=== PATIENT | female | born 1940 | race Caucasian/White ===

== ENCOUNTER → 2016-08-03 | Outpatient (CLI) | payer OTHER ==
[~2016-08-03] MED LIST: ASPI81CH43; PREDPOW63; TRAM50TA2
[2016-08-03 12:54] LABS: Basophils # (auto) 0 uL; Basophils % (auto) 0.2 % (0.0-2.0); Eosinophils # (auto) 0 uL; Eosinophils % (auto) 0.2 % (0.0-7.0); Hemoglobin 12.3 g/dL (12.2-16.2); Lymphocytes # (auto) 1.6 uL; Lymphocytes % (auto) 18.9 % (10.0-50.0); Mean Corpuscular Hemoglobin 29.7 pg (28.0-32.0); Mean Corpuscular Hgb Conc. 34.1 g/dL (32.0-36.0); Mean Corpuscular Volume 87.3 fL (80.0-100.0); Mean Platelet Volume 7.8 fL (7.4-10.4); Monocytes # (auto) 0.4 uL; Monocytes % (auto) 4.2 % (0.0-12.0); Neutrophils # (auto) 6.4 uL; Neutrophils % (auto) 76.5 % (37.0-80.0); Platelet Count (auto) 375 10^3/uL (140-450); Red Cell Distribution Width 13.5 % (11.6-16.0); White Blood Cell 8.3 10^3/uL (4.4-10.8)
[2016-08-03 13:08] LABS: Albumin 3.7 g/dL (3.4-5.0); Bilirubin, Total 0.4 mg/dL (0.2-1.0); Calcium 8.6 mg/dL (8.5-10.1); Potassium 4.3 mmol/L (3.5-5.1); Total Protein 7.1 g/dL (6.4-8.2)
== END | disposition home or self-care (01) ==
LOC: LAB 10:38
PROVIDERS: ATTEND Internal Medicine
DX: I10 Essential (primary) hypertension (principal); R53.82 Chronic fatigue, unspecified; M81.0 Age-related osteoporosis without current pathological fracture; M35.3 Polymyalgia rheumatica; D64.9 Anemia, unspecified; M25.50 Pain in unspecified joint; M06.9 Rheumatoid arthritis, unspecified; Z79.899 Other long term (current) drug therapy
CPT/HCPCS: 36415; 80053; 80061; 82306; 83036; 84439; 84443; 85025; 85652; 86141

== ENCOUNTER → 2017-02-07 | Outpatient (CLI) | payer OTHER ==
[2017-02-07 12:52] LABS: Basophils # (auto) 0 uL; Basophils % (auto) 0.5 % (0.0-2.0); Eosinophils # (auto) 0 uL; Eosinophils % (auto) 0.6 % (0.0-7.0); Hematocrit 36.6 % (36.0-46.0); Hemoglobin 12.3 g/dL (12.2-16.2); Lymphocytes # (auto) 1.8 uL; Lymphocytes % (auto) 24.9 % (10.0-50.0); Mean Corpuscular Hemoglobin 30.2 pg (28.0-32.0); Mean Corpuscular Hgb Conc. 33.6 g/dL (32.0-36.0); Mean Corpuscular Volume 89.9 fL (80.0-100.0); Mean Platelet Volume 7.4 fL (6.9-10.8); Monocytes # (auto) 0.4 uL; Monocytes % (auto) 5.8 % (0.0-12.0); Neutrophils % (auto) 68.2 % (37.0-80.0); Nucleated Red Blood Cells % 0.1 %; Platelet Count (auto) 322 10^3/uL (140-450); Red Cell Distribution Width 13.9 % (11.8-14.3); White Blood Cell 7.3 10^3/uL (4.4-10.8)
[2017-02-07 13:43] LABS: Albumin 3.8 g/dL (3.4-5.0); BUN/Creatinine Ratio 27.9; Bilirubin, Total 0.5 mg/dL (0.2-1.0); Calcium 8.7 mg/dL (8.5-10.1); Potassium 4.3 mmol/L (3.5-5.1); Total Protein 7.1 g/dL (6.4-8.2)
== END | disposition home or self-care (01) ==
LOC: LAB 12:00
DX: I10 Essential (primary) hypertension (principal); M06.9 Rheumatoid arthritis, unspecified; D64.9 Anemia, unspecified; Z79.899 Other long term (current) drug therapy
CPT/HCPCS: 36415; 80053; 85025; 85652; 86141

== ENCOUNTER → 2017-10-24 | Outpatient (CLI) | payer OTHER ==
[2017-10-24 09:52] LABS: Basophils # (auto) 0 uL; Basophils % (auto) 0.5 % (0.0-2.0); Eosinophils # (auto) 0.2 uL; Eosinophils % (auto) 3.1 % (0.0-7.0); Hematocrit 37.2 % (36.0-46.0); Hemoglobin 12.4 g/dL (12.2-16.2); Lymphocytes # (auto) 2.1 uL; Lymphocytes % (auto) 38.1 % (10.0-50.0); Mean Corpuscular Hemoglobin 29.5 pg (28.0-32.0); Mean Corpuscular Hgb Conc. 33.4 g/dL (32.0-36.0); Mean Corpuscular Volume 88.5 fL (80.0-100.0); Monocytes # (auto) 0.6 uL; Monocytes % (auto) 10.3 % (0.0-12.0); Neutrophils # (auto) 2.7 uL; Nucleated Red Blood Cells % 0.1 %; Platelet Count (auto) 305 10^3/uL (140-450); Red Blood Cells 4.21 10^6/uL (4.0-5.20); Red Cell Distribution Width 13.6 % (11.8-14.3); White Blood Cell 5.6 10^3/uL (4.4-10.8)
[2017-10-24 11:13] LABS: Cholesterol 205 mg/dL (< 200); Creatine Kinase IFCC 50 U/L (26-192); HDL Cholesterol 62 mg/dL (40-59); LDL Cholesterol 125 mg/dL (< 100); Triglycerides 88 mg/dL (< 150)
[2017-10-24 14:13] LABS: Hepatitis A Ab IgM Negative; Hepatitis B Core IgM Negative; Hepatitis B Surface Antigen Negative (Negative); Hepatitis C Antibody Negative (Negative)
== END | disposition home or self-care (01) ==
LOC: LAB 07:58
PROVIDERS: ATTEND Internal Medicine
DX: I12.9 Hypertensive chronic kidney disease with stage 1 through stage 4 chronic kidney disease, or unspecified chronic kidney disease (principal); D63.1 Anemia in chronic kidney disease; N18.2 Chronic kidney disease, stage 2 (mild); Z88.1 Allergy status to other antibiotic agents
CPT/HCPCS: 36415; 80061; 80074; 82550; 85025; 85652

== ENCOUNTER → 2018-08-22 | Outpatient (CLI) | payer OTHER ==
[~2018-08-22] MED LIST changes: +ALEN70SO OR; -ASPI81CH43; -PREDPOW63; -TRAM50TA2
[2018-08-22 16:24] LABS: Basophils # (auto) 0 uL; Basophils % (auto) 0.4 % (0.0-2.0); Eosinophils # (auto) 0 uL; Eosinophils % (auto) 0.3 % (0.0-7.0); Hematocrit 36.7 % (36.0-46.0); Hemoglobin 11.7 g/dL (12.2-16.2); Lymphocytes # (auto) 2.3 uL; Lymphocytes % (auto) 25.5 % (10.0-50.0); Mean Corpuscular Hemoglobin 27.7 pg (28.0-32.0); Mean Corpuscular Volume 86.5 fL (80.0-100.0); Monocytes # (auto) 0.6 uL; Monocytes % (auto) 6.7 % (0.0-12.0); Neutrophils # (auto) 5.9 uL; Neutrophils % (auto) 67.1 % (37.0-80.0); Platelet Count (auto) 415 10^3/uL (140-450); Red Blood Cells 4.24 10^6/uL (4.0-5.20); Red Cell Distribution Width 14.4 % (11.8-14.3); White Blood Cell 8.8 10^3/uL (4.4-10.8)
== END | disposition home or self-care (01) ==
LOC: LAB 15:50
PROVIDERS: ATTEND Internal Medicine
DX: D32.9 Benign neoplasm of meninges, unspecified (principal); D64.9 Anemia, unspecified
CPT/HCPCS: 36415; 82565; 84520; 85025

== ENCOUNTER → 2018-11-16 | Outpatient (CLI) | payer OTHER ==
[2018-11-16 14:27] LABS: Cholesterol 184 mg/dL (< 200); HDL Cholesterol 61 mg/dL (40-59); LDL Cholesterol 104 mg/dL (< 100); Triglycerides 120 mg/dL (< 150)
== END | disposition home or self-care (01) ==
LOC: LAB 13:11
PROVIDERS: ATTEND Internal Medicine
DX: D64.9 Anemia, unspecified (principal); M81.0 Age-related osteoporosis without current pathological fracture; R53.82 Chronic fatigue, unspecified
CPT/HCPCS: 36415; 80061; 82306; 84443

== ENCOUNTER → 2018-12-04 | Outpatient (CLI) | payer OTHER ==
[2018-12-04 13:52] LABS: Basophils # (auto) 0 uL; Basophils % (auto) 0.4 % (0.0-2.0); Eosinophils # (auto) 0.1 uL; Eosinophils % (auto) 1.2 % (0.0-7.0); Hematocrit 36.4 % (36.0-46.0); Hemoglobin 12.1 g/dL (12.2-16.2); Lymphocytes # (auto) 2.2 uL; Lymphocytes % (auto) 27.6 % (10.0-50.0); Mean Corpuscular Hemoglobin 28.2 pg (28.0-32.0); Mean Corpuscular Hgb Conc. 33.2 g/dL (32.0-36.0); Mean Corpuscular Volume 84.8 fL (80.0-100.0); Monocytes # (auto) 0.5 uL; Monocytes % (auto) 6.7 % (0.0-12.0); Neutrophils # (auto) 5.1 uL; Neutrophils % (auto) 64.1 % (37.0-80.0); Platelet Count (auto) 325 10^3/uL (140-450); Red Blood Cells 4.29 10^6/uL (4.0-5.20); Red Cell Distribution Width 14.4 % (11.8-14.3)
[2018-12-04 14:00] LABS: Urine Bacteria FEW /hpf (None Seen); Urine Blood Negative /uL (Negative); Urine Mucus FEW (None Seen); Urine Specific Gravity 1.022 (1.001-1.035); Urine WBC 1 /hpf (0 - 5)
== END | disposition home or self-care (01) ==
LOC: LAB 12:27
PROVIDERS: ATTEND Internal Medicine
DX: Z12.11 Encounter for screening for malignant neoplasm of colon (principal); I12.9 Hypertensive chronic kidney disease with stage 1 through stage 4 chronic kidney disease, or unspecified chronic kidney disease; N18.2 Chronic kidney disease, stage 2 (mild)
CPT/HCPCS: 36415; 81001; 82607; 85025

== ENCOUNTER 2019-05-06 12:39 | Emergency (ER) | payer OTHER ==
[~2019-05-06] VITALS: Ht 177.8 cm; Wt 54.4 kg
[2019-05-06 12:50] VITALS: BP 163/62
== END 2019-05-06 16:39 | disposition home or self-care (01) ==
LOC: ER 12:46
DX: S53.402A Unspecified sprain of left elbow, initial encounter (principal); R10.2 Pelvic and perineal pain; I10 Essential (primary) hypertension; Z90.710 Acquired absence of both cervix and uterus; Z91.013 Allergy to seafood; W19.XXXA Unspecified fall, initial encounter; Y93.89 Activity, other specified; Y99.8 Other external cause status; Y92.89 Other specified places as the place of occurrence of the external cause; Z88.1 Allergy status to other antibiotic agents
CPT/HCPCS: 70450; 70486; 72192; 73070; 74176

== ENCOUNTER → 2019-05-18 | Outpatient (CLI) | payer OTHER ==
[2019-05-18 11:41] LABS: Basophils # (auto) 0 10 ^3/uL (0-0.2); Basophils % (auto) 0.4 % (0.0-2.0); Eosinophils # (auto) 0 10 ^3/uL (0-0.8); Eosinophils % (auto) 0.6 % (0.0-7.0); Hematocrit 36.5 % (36.0-46.0); Hemoglobin 12.1 g/dL (12.2-16.2); Lymphocytes % (auto) 24.4 % (10.0-50.0); Mean Corpuscular Hemoglobin 28.1 pg (28.0-32.0); Mean Corpuscular Hgb Conc. 33.3 g/dL (32.0-36.0); Mean Corpuscular Volume 84.4 fL (80.0-100.0); Monocytes # (auto) 0.6 10 ^3/uL (0-1.3); Monocytes % (auto) 6.8 % (0.0-12.0); Neutrophils # (auto) 5.6 10 ^3/uL (1.6-8.6); Neutrophils % (auto) 67.8 % (37.0-80.0); Platelet Count (auto) 333 10^3/uL (140-450); Red Blood Cells 4.33 10^6/uL (4.0-5.20); Red Cell Distribution Width 15.2 % (11.8-14.3); White Blood Cell 8.3 10^3/uL (4.4-10.8)
[2019-05-18 12:00] LABS: Albumin 3.6 g/dL (3.4-5.0); Calcium 8.8 mg/dL (8.5-10.1); Potassium 4.3 mmol/L (3.5-5.1)
[2019-05-18 12:03] LABS: Bilirubin, Total 0.3 mg/dL (0.2-1.0); Total Protein 7.1 g/dL (6.4-8.2)
== END | disposition home or self-care (01) ==
LOC: LAB 11:22
PROVIDERS: ATTEND Internal Medicine
DX: M25.511 Pain in right shoulder (principal); M35.3 Polymyalgia rheumatica; M81.0 Age-related osteoporosis without current pathological fracture
CPT/HCPCS: 36415; 80053; 82550; 85025; 85652

== ENCOUNTER → 2020-10-22 | Outpatient (CLI) | payer OTHER ==
[2020-10-22 08:59] LABS: Basophils # (auto) 0.1 10 ^3/uL (0-0.2); Basophils % (auto) 0.7 % (0.0-2.0); Eosinophils # (auto) 0.1 10 ^3/uL (0-0.8); Eosinophils % (auto) 1.1 % (0.0-7.0); Hematocrit 38.7 % (36.0-46.0); Hemoglobin 12.8 g/dL (12.2-16.2); Lymphocytes # (auto) 3.1 10 ^3/uL (0.4-5.4); Lymphocytes % (auto) 43.7 % (10.0-50.0); Mean Corpuscular Hgb Conc. 33.1 g/dL (32.0-36.0); Mean Corpuscular Volume 90.7 fL (80.0-100.0); Monocytes # (auto) 0.5 10 ^3/uL (0-1.3); Monocytes % (auto) 7.3 % (0.0-12.0); Neutrophils # (auto) 3.4 10 ^3/uL (1.6-8.6); Neutrophils % (auto) 47.2 % (37.0-80.0); Red Blood Cells 4.27 10^6/uL (4.0-5.20); Red Cell Distribution Width 13.5 % (11.8-14.3); White Blood Cell 7.1 10^3/uL (4.4-10.8)
[2020-10-22 09:39] LABS: Albumin 3.6 g/dL (3.4-5.0); Calcium 8.9 mg/dL (8.5-10.1); Potassium 3.9 mmol/L (3.5-5.1)
[2020-10-22 09:44] LABS: Bilirubin, Total 0.4 mg/dL (0.2-1.0); Total Protein 6.8 g/dL (6.4-8.2)
== END | disposition home or self-care (01) ==
LOC: LAB 08:22
PROVIDERS: ATTEND Internal Medicine
DX: R53.83 Other fatigue (principal); R53.1 Weakness
CPT/HCPCS: 36415; 80053; 80061; 84443; 85025; 85652

== ENCOUNTER → 2021-05-04 | Outpatient (CLI) | payer OTHER | END | disposition home or self-care (01) | LOC: LAB 08:26 | PROVIDERS: ATTEND Internal Medicine | DX: D63.8 Anemia in other chronic diseases classified elsewhere (principal); M35.3 Polymyalgia rheumatica | CPT/HCPCS: 36415; 84443 ==

== ENCOUNTER → 2021-08-11 | Outpatient (CLI) | payer OTHER ==
[2021-08-11 09:39] LABS: Basophils # (auto) 0.1 10 ^3/uL (0-0.2); Basophils % (auto) 1.5 % (0.0-2.0); Eosinophils # (auto) 0.3 10 ^3/uL (0-0.8); Eosinophils % (auto) 4.1 % (0.0-7.0); Hemoglobin 11.4 g/dL (12.2-16.2); Lymphocytes # (auto) 2.3 10 ^3/uL (0.4-5.4); Lymphocytes % (auto) 29.9 % (10.0-50.0); Mean Corpuscular Hemoglobin 29.7 pg (28.0-32.0); Mean Corpuscular Hgb Conc. 33.5 g/dL (32.0-36.0); Mean Corpuscular Volume 88.8 fL (80.0-100.0); Monocytes # (auto) 0.8 10 ^3/uL (0-1.3); Monocytes % (auto) 10.8 % (0.0-12.0); Neutrophils # (auto) 4.1 10 ^3/uL (1.6-8.6); Neutrophils % (auto) 53.7 % (37.0-80.0); Red Blood Cells 3.83 10^6/uL (4.0-5.20); Red Cell Distribution Width 13.2 % (11.8-14.3); White Blood Cell 7.7 10^3/uL (4.4-10.8)
[2021-08-11 09:41] LABS: Urine Bacteria FEW /hpf (None Seen); Urine Blood Negative /uL (Negative); Urine Hyaline Cast FEW /lpf (0 - 2); Urine Mucus FEW (None Seen); Urine Specific Gravity 1.013 (1.001-1.035); Urine WBC 8 /hpf (0 - 5)
[2021-08-11 09:46] LABS: Albumin 3.2 g/dL (3.4-5.0); Calcium 8.6 mg/dL (8.5-10.1); Potassium 3.6 mmol/L (3.5-5.1)
[2021-08-11 09:50] LABS: BUN/Creatinine Ratio 22.1; Bilirubin, Total 0.3 mg/dL (0.2-1.0); Total Protein 6.4 g/dL (6.4-8.2)
== END | disposition home or self-care (01) ==
LOC: LAB 08:47
PROVIDERS: ATTEND Internal Medicine
DX: Z00.00 Encounter for general adult medical examination without abnormal findings (principal); M06.9 Rheumatoid arthritis, unspecified; M35.3 Polymyalgia rheumatica
CPT/HCPCS: 36415; 80053; 81001; 82550; 85025; 85652

== ENCOUNTER → 2021-11-12 | Outpatient (CLI) | payer OTHER ==
[2021-11-12 15:38] LABS: Basophils # (auto) 0 10 ^3/uL (0-0.2); Basophils % (auto) 0.4 % (0.0-2.0); Eosinophils # (auto) 0 10 ^3/uL (0-0.8); Eosinophils % (auto) 0.7 % (0.0-7.0); Hematocrit 36.3 % (36.0-46.0); Hemoglobin 11.6 g/dL (12.2-16.2); Lymphocytes # (auto) 2.3 10 ^3/uL (0.4-5.4); Lymphocytes % (auto) 33.5 % (10.0-50.0); Mean Corpuscular Hemoglobin 27.9 pg (28.0-32.0); Mean Corpuscular Volume 87.2 fL (80.0-100.0); Monocytes # (auto) 0.5 10 ^3/uL (0-1.3); Monocytes % (auto) 6.8 % (0.0-12.0); Neutrophils % (auto) 58.6 % (37.0-80.0); Nucleated Red Blood Cells % 0.1 %; Red Blood Cells 4.17 10^6/uL (4.0-5.20); Red Cell Distribution Width 14.7 % (11.8-14.3); White Blood Cell 6.8 10^3/uL (4.4-10.8)
== END | disposition home or self-care (01) ==
LOC: LAB 14:20
PROVIDERS: ATTEND Internal Medicine
DX: E03.9 Hypothyroidism, unspecified (principal); D64.9 Anemia, unspecified; N39.0 Urinary tract infection, site not specified
CPT/HCPCS: 36415; 82550; 85025; 85652

== ENCOUNTER → 2022-02-11 | Outpatient (CLI) | payer OTHER | END | disposition home or self-care (01) | LOC: LAB 14:00 | PROVIDERS: ATTEND Internal Medicine | DX: E03.9 Hypothyroidism, unspecified (principal); D64.81 Anemia due to antineoplastic chemotherapy | CPT/HCPCS: 36415; 84443; 85652 ==

== ENCOUNTER → 2022-05-14 | Outpatient (CLI) | payer OTHER ==
[2022-05-14 09:41] LABS: Basophils # (auto) 0 10 ^3/uL (0-0.2); Basophils % (auto) 0.7 % (0.0-2.0); Eosinophils # (auto) 0.2 10 ^3/uL (0-0.8); Eosinophils % (auto) 2.3 % (0.0-7.0); Hematocrit 36.8 % (36.0-46.0); Hemoglobin 12.1 g/dL (12.2-16.2); Lymphocytes # (auto) 2.6 10 ^3/uL (0.4-5.4); Lymphocytes % (auto) 35.4 % (10.0-50.0); Mean Corpuscular Hemoglobin 28.9 pg (28.0-32.0); Mean Corpuscular Hgb Conc. 32.9 g/dL (32.0-36.0); Monocytes # (auto) 0.7 10 ^3/uL (0-1.3); Monocytes % (auto) 9.6 % (0.0-12.0); Neutrophils # (auto) 3.7 10 ^3/uL (1.6-8.6); Nucleated Red Blood Cells % 0.1 %; Red Blood Cells 4.18 10^6/uL (4.0-5.20); Red Cell Distribution Width 13.4 % (11.8-14.3); White Blood Cell 7.2 10^3/uL (4.4-10.8)
[2022-05-14 10:55] LABS: Cholesterol 196 mg/dL (< 200); HDL Cholesterol 74 mg/dL (40-59); LDL Cholesterol 109 mg/dL (< 100); Triglycerides 114 mg/dL (< 150)
== END | disposition home or self-care (01) ==
LOC: LAB 09:23
PROVIDERS: ATTEND Internal Medicine
DX: E03.9 Hypothyroidism, unspecified (principal); M35.3 Polymyalgia rheumatica; D64.9 Anemia, unspecified
CPT/HCPCS: 36415; 80061; 84443; 85025; 85652

== ENCOUNTER 2022-05-24 15:35 | Emergency (ER) | payer OTHER ==
[~2022-05-24] VITALS: Ht 170.2 cm; Wt 52.0 kg
[2022-05-24 16:30] LABS: Basophils # (auto) 0 10 ^3/uL (0-0.2); Basophils % (auto) 0.4 % (0.0-2.0); Eosinophils # (auto) 0.1 10 ^3/uL (0-0.8); Eosinophils % (auto) 1.7 % (0.0-7.0); Hematocrit 35.8 % (36.0-46.0); Hemoglobin 11.9 g/dL (12.2-16.2); Lymphocytes # (auto) 1.7 10 ^3/uL (0.4-5.4); Mean Corpuscular Hemoglobin 29.5 pg (28.0-32.0); Mean Corpuscular Hgb Conc. 33.1 g/dL (32.0-36.0); Monocytes # (auto) 0.7 10 ^3/uL (0-1.3); Neutrophils # (auto) 5.8 10 ^3/uL (1.6-8.6); Neutrophils % (auto) 69.9 % (37.0-80.0); Nucleated Red Blood Cells % 0.1 %; Red Blood Cells 4.02 10^6/uL (4.0-5.20); Red Cell Distribution Width 13.6 % (11.8-14.3); White Blood Cell 8.3 10^3/uL (4.4-10.8)
[2022-05-24 16:50] LABS: Calcium 8.4 mg/dL (8.5-10.1); Potassium 4.9 mmol/L (3.5-5.1)
[2022-05-24 16:55] LABS: INR 0.96 (0.9-1.15)
[2022-05-24 16:56] LABS: Albumin 3.2 g/dL (3.4-5.0); BUN/Creatinine Ratio 32.1 (10.0-20.0); Bilirubin, Total 0.3 mg/dL (0.2-1.0); Total Protein 5.9 g/dL (6.4-8.2)
[2022-05-24] MEDS ORDERED: levETIRAcetam 500 MG/5ML INJ IV ONE (17:42)
[2022-05-24] MEDS ORDERED: ONDANSETRON HCL 4 MG/2 ML VIAL IV ONE (17:45)
[2022-05-24 18:28] VITALS: BP 152/53
== END 2022-05-24 18:50 | disposition short-term general hospital (02) ==
LOC: ER 15:35 → EDBD 15:35 → ER 18:50
DX: S02.85XA Fracture of orbit, unspecified, initial encounter for closed fracture (principal); S06.5XAA Traumatic subdural hemorrhage with loss of consciousness status unknown, initial encounter; I10 Essential (primary) hypertension; Z90.710 Acquired absence of both cervix and uterus; W18.39XA Other fall on same level, initial encounter; Y93.89 Activity, other specified; Y92.89 Other specified places as the place of occurrence of the external cause; Y99.8 Other external cause status
CPT/HCPCS: 36415; 70450; 70486; 71045; 72125; 80053; 84484; 85025; 85610; 85730; 93005; 96365; 96375; 99291; J1953; J2405; J7060

== ENCOUNTER → 2022-09-08 | Outpatient (CLI) | payer OTHER ==
[~2022-09-08] MED LIST changes: -ALEN70SO OR; +ALEN70SO2 OR
[2022-09-08 13:19] LABS: Basophils # (auto) 0 10 ^3/uL (0-0.2); Basophils % (auto) 0.4 % (0.0-2.0); Eosinophils # (auto) 0.2 10 ^3/uL (0-0.8); Eosinophils % (auto) 2.1 % (0.0-7.0); Hematocrit 36.5 % (36.0-46.0); Hemoglobin 11.8 g/dL (12.2-16.2); Lymphocytes # (auto) 2.1 10 ^3/uL (0.4-5.4); Lymphocytes % (auto) 26.3 % (10.0-50.0); Mean Corpuscular Hemoglobin 28.2 pg (28.0-32.0); Mean Corpuscular Hgb Conc. 32.4 g/dL (32.0-36.0); Mean Corpuscular Volume 87.2 fL (80.0-100.0); Monocytes # (auto) 0.6 10 ^3/uL (0-1.3); Monocytes % (auto) 7.1 % (0.0-12.0); Neutrophils # (auto) 5.1 10 ^3/uL (1.6-8.6); Neutrophils % (auto) 64.1 % (37.0-80.0); Nucleated Red Blood Cells % 0.1 %; Red Blood Cells 4.18 10^6/uL (4.0-5.20); Red Cell Distribution Width 14.3 % (11.8-14.3)
== END | disposition home or self-care (01) ==
LOC: LAB 13:06
PROVIDERS: ATTEND Internal Medicine
DX: D64.9 Anemia, unspecified (principal)
CPT/HCPCS: 36415; 85025

== ENCOUNTER → 2022-10-05 | Outpatient (CLI) | payer OTHER ==
[2022-10-05 13:15] LABS: Folate (Folic Acid) > 24.00 ng/mL (5.38-24)
== END | disposition home or self-care (01) ==
LOC: LAB 12:03
PROVIDERS: ATTEND Internal Medicine
DX: D64.9 Anemia, unspecified (principal); N18.30 Chronic kidney disease, stage 3 unspecified
CPT/HCPCS: 36415; 82306; 82607; 82746; 84443

== ENCOUNTER → 2022-11-10 | Outpatient (CLI) | payer OTHER ==
[2022-11-10 15:22] LABS: Basophils # (auto) 0.1 10 ^3/uL (0-0.2); Basophils % (auto) 0.6 % (0.0-2.0); Eosinophils # (auto) 0 10 ^3/uL (0-0.8); Eosinophils % (auto) 0.1 % (0.0-7.0); Hematocrit 36.9 % (36.0-46.0); Hemoglobin 12.2 g/dL (12.2-16.2); Lymphocytes # (auto) 2.1 10 ^3/uL (0.4-5.4); Lymphocytes % (auto) 23.1 % (10.0-50.0); Mean Corpuscular Hemoglobin 28.7 pg (28.0-32.0); Mean Corpuscular Volume 86.8 fL (80.0-100.0); Monocytes # (auto) 0.4 10 ^3/uL (0-1.3); Monocytes % (auto) 4.7 % (0.0-12.0); Neutrophils # (auto) 6.5 10 ^3/uL (1.6-8.6); Neutrophils % (auto) 71.5 % (37.0-80.0); Nucleated Red Blood Cells % 0.1 %; Red Blood Cells 4.25 10^6/uL (4.0-5.20); Red Cell Distribution Width 14.7 % (11.8-14.3); White Blood Cell 9.1 10^3/uL (4.4-10.8)
[2022-11-10 16:10] LABS: Alanine Aminotransferase 13 U/L (7-40); Albumin 4.3 g/dL (3.2-4.8); Alkaline Phosphatase 71 U/L (46-116); Anion Gap 4.8 (5-15); Aspartate Aminotransferase < 8 U/L (13-40); Bilirubin, Total 0.3 mg/dL (0.2-1.0); Blood Urea Nitrogen 24 mg/dL (9-23); Calcium 9.4 mg/dL (8.5-10.1); Carbon Dioxide 26.2 mmol/L (20-30); Chloride 108 mmol/L (98-107); Glucose 103 mg/dL (74-106); Potassium 4.6 mmol/L (3.5-5.1); Sodium 139 mmol/L (136-145); Total Protein 6.8 g/dL (5.7-8.2)
== END | disposition home or self-care (01) ==
LOC: LAB 15:00
PROVIDERS: ATTEND Internal Medicine
DX: E03.9 Hypothyroidism, unspecified (principal); D64.9 Anemia, unspecified
CPT/HCPCS: 36415; 80053; 84443; 85025

== ENCOUNTER → 2022-12-28 | Outpatient (CLI) | payer OTHER ==
[2022-12-28 12:21] LABS: Chloride 108 mmol/L (98-107); Potassium 4.3 mmol/L (3.5-5.1); Sodium 143 mmol/L (136-145)
[2022-12-28 12:22] LABS: Anion Gap 6 (5-15); Carbon Dioxide 29 mmol/L (20-30)
[2022-12-28 12:23] LABS: Calcium 9.4 mg/dL (8.5-10.1)
[2022-12-28 12:27] LABS: BUN/Creatinine Ratio 27.7 (10.0-20.0); Blood Urea Nitrogen 26 mg/dL (9-23); Glucose 91 mg/dL (74-106)
[2022-12-28 12:28] LABS: CRP High Sensitivity 0.09 mg/dL (<1.0)
[2022-12-28 13:58] LABS: Erythrocyte Sedimentation Rate 9 mm/hr (0-20)
== END | disposition home or self-care (01) ==
LOC: LAB 10:58
PROVIDERS: ATTEND Internal Medicine
DX: N18.30 Chronic kidney disease, stage 3 unspecified (principal); E03.9 Hypothyroidism, unspecified; M35.3 Polymyalgia rheumatica
CPT/HCPCS: 36415; 80048; 84443; 85652; 86141

== ENCOUNTER → 2023-02-01 | Outpatient (CLI) | payer OTHER | END | disposition home or self-care (01) | LOC: XYW 09:54 | PROVIDERS: ATTEND Internal Medicine | DX: I08.3 Combined rheumatic disorders of mitral, aortic and tricuspid valves (principal); R26.89 Other abnormalities of gait and mobility; I65.22 Occlusion and stenosis of left carotid artery | CPT/HCPCS: 93306; 93886 ==

== ENCOUNTER 2023-04-09 11:20 | Emergency (ER) | payer OTHER ==
[~2023-04-09] VITALS: Ht 165.1 cm; Wt 55.0 kg
[2023-04-09 13:00] VITALS: BP 127/62; PULSE 62; RESP 18; TEMP 98.1; O2SAT 97
[2023-04-09] MEDS ORDERED: IBUP1TAB5 PO (13:54)
[2023-04-09] MEDS: HYDROcodone-ACET 5/325MG TAB PO ONE (14:18)
== END 2023-04-09 14:35 | disposition home or self-care (01) ==
LOC: ER 11:20 → EDBD 11:20 → ER 14:22
DX: S40.012A Contusion of left shoulder, initial encounter (principal); I10 Essential (primary) hypertension; Z98.890 Other specified postprocedural states; Z88.8 Allergy status to other drugs, medicaments and biological substances; Z91.013 Allergy to seafood; Z79.899 Other long term (current) drug therapy; W01.0XXA Fall on same level from slipping, tripping and stumbling without subsequent striking against object, initial encounter; Y93.89 Activity, other specified; Y92.89 Other specified places as the place of occurrence of the external cause; Y99.8 Other external cause status
CPT/HCPCS: 29105; 73030; 73060

== ENCOUNTER → 2023-07-11 | Outpatient (CLI) | payer OTHER ==
[~2023-07-11] MED LIST changes: +IBUP1TAB5 PO
== END | disposition home or self-care (01) ==
LOC: LAB 12:09
PROVIDERS: ATTEND Internal Medicine
DX: N18.30 Chronic kidney disease, stage 3 unspecified (principal)
CPT/HCPCS: 36415; 82550; 83036

== ENCOUNTER → 2023-09-13 | Outpatient (CLI) | payer OTHER ==
[2023-09-13 13:15] LABS: Erythrocyte Sedimentation Rate 10 mm/hr (0-20)
== END | disposition home or self-care (01) ==
LOC: LAB 11:53
PROVIDERS: ATTEND Internal Medicine
DX: R35.1 Nocturia (principal); N18.9 Chronic kidney disease, unspecified
CPT/HCPCS: 36415; 82550; 85652

== ENCOUNTER → 2023-11-01 | Outpatient (CLI) | payer OTHER ==
[2023-11-01 10:52] LABS: Basophils # (auto) 0 10 ^3/uL (0-0.2); Basophils % (auto) 0.4 % (0.0-2.0); Eosinophils # (auto) 0 10 ^3/uL (0-0.8); Eosinophils % (auto) 0.5 % (0.0-7.0); Hematocrit 29.8 % (36.0-46.0); Hemoglobin 9.7 g/dL (12.2-16.2); Lymphocytes # (auto) 1.7 10 ^3/uL (0.4-5.4); Lymphocytes % (auto) 19.4 % (10.0-50.0); Mean Corpuscular Hemoglobin 27.4 pg (28.0-32.0); Mean Corpuscular Hgb Conc. 32.7 g/dL (32.0-36.0); Mean Corpuscular Volume 83.8 fL (80.0-100.0); Monocytes # (auto) 0.5 10 ^3/uL (0-1.3); Monocytes % (auto) 6.2 % (0.0-12.0); Neutrophils # (auto) 6.3 10 ^3/uL (1.6-8.6); Neutrophils % (auto) 73.5 % (37.0-80.0); Platelet Count (auto) 391 10^3/uL (140-450); Red Blood Cells 3.55 10^6/uL (4.0-5.20); Red Cell Distribution Width 14.4 % (11.8-14.3); White Blood Cell 8.6 10^3/uL (4.4-10.8)
[2023-11-01 11:29] LABS: Alanine Aminotransferase 11 U/L (7-40); Albumin 4.2 g/dL (3.2-4.8); Alkaline Phosphatase 87 U/L (46-116); Anion Gap 5 (5-15); Aspartate Aminotransferase 11 U/L (13-40); Bilirubin, Total 0.4 mg/dL (0.2-1.0); Blood Urea Nitrogen 24 mg/dL (9-23); Calcium 9.8 mg/dL (8.7-10.4); Carbon Dioxide 29 mmol/L (20-30); Chloride 107 mmol/L (98-107); Glucose 106 mg/dL (74-106); Potassium 4.1 mmol/L (3.5-5.1); Sodium 141 mmol/L (136-145); Total Protein 6.4 g/dL (5.7-8.2)
== END | disposition home or self-care (01) ==
LOC: LAB 10:24
PROVIDERS: ATTEND Internal Medicine
DX: N18.31 Chronic kidney disease, stage 3a (principal); F32.A Depression, unspecified; M35.3 Polymyalgia rheumatica
CPT/HCPCS: 36415; 80053; 82306; 82607; 84443; 85025

== ENCOUNTER → 2023-12-12 | Outpatient (CLI) | payer OTHER ==
[2023-12-12 14:42] LABS: Basophils # (auto) 0 10 ^3/uL (0-0.2); Basophils % (auto) 0.5 % (0.0-2.0); Eosinophils # (auto) 0 10 ^3/uL (0-0.8); Hemoglobin 9.4 g/dL (12.2-16.2); Lymphocytes # (auto) 1.5 10 ^3/uL (0.4-5.4); Monocytes # (auto) 0.4 10 ^3/uL (0-1.3); Red Cell Distribution Width 15.1 % (11.8-14.3); White Blood Cell 7.2 10^3/uL (4.4-10.8)
[2023-12-12 14:45] LABS: Eosinophils % (auto) 0.3 % (0.0-7.0); Lymphocytes % (auto) 20.7 % (10.0-50.0); Mean Corpuscular Hemoglobin 26.9 pg (28.0-32.0); Mean Corpuscular Hgb Conc. 32.5 g/dL (32.0-36.0); Mean Corpuscular Volume 82.7 fL (80.0-100.0); Monocytes % (auto) 5.4 % (0.0-12.0); Neutrophils # (auto) 5.2 10 ^3/uL (1.6-8.6); Neutrophils % (auto) 73.1 % (37.0-80.0); Nucleated Red Blood Cells % 0.1 %; Platelet Count (auto) 398 10^3/uL (140-450); Red Blood Cells 3.51 10^6/uL (4.0-5.20)
[2023-12-12 15:26] LABS: Erythrocyte Sedimentation Rate 12 mm/hr (0-20)
[2023-12-12 15:47] LABS: % Iron Saturation 16.8 % (15-50)
== END | disposition home or self-care (01) ==
LOC: LAB 13:54
PROVIDERS: ATTEND Internal Medicine
DX: D64.9 Anemia, unspecified (principal); R63.4 Abnormal weight loss
CPT/HCPCS: 36415; 82728; 83540; 83550; 85025; 85652

== ENCOUNTER → 2023-12-14 | Outpatient (CLI) | payer OTHER ==
[2023-12-14 16:06] LABS: Basophils # (auto) 0 10 ^3/uL (0-0.2); Basophils % (auto) 0.5 % (0.0-2.0); Eosinophils # (auto) 0 10 ^3/uL (0-0.8); Eosinophils % (auto) 0.3 % (0.0-7.0); Hematocrit 31.8 % (36.0-46.0); Hemoglobin 10.2 g/dL (12.2-16.2); Lymphocytes # (auto) 1.7 10 ^3/uL (0.4-5.4); Lymphocytes % (auto) 19.4 % (10.0-50.0); Mean Corpuscular Hemoglobin 26.6 pg (28.0-32.0); Mean Corpuscular Hgb Conc. 32.2 g/dL (32.0-36.0); Mean Corpuscular Volume 82.7 fL (80.0-100.0); Monocytes # (auto) 0.6 10 ^3/uL (0-1.3); Monocytes % (auto) 6.8 % (0.0-12.0); Neutrophils # (auto) 6.2 10 ^3/uL (1.6-8.6); Platelet Count (auto) 425 10^3/uL (140-450); Red Blood Cells 3.85 10^6/uL (4.0-5.20); Red Cell Distribution Width 15.2 % (11.8-14.3); White Blood Cell 8.5 10^3/uL (4.4-10.8)
[2023-12-14 16:24] LABS: Alanine Aminotransferase 15 U/L (7-40); Albumin 4.6 g/dL (3.2-4.8); Alkaline Phosphatase 91 U/L (46-116); Anion Gap 8 (5-15); Aspartate Aminotransferase 12 U/L (13-40); BUN/Creatinine Ratio 24.3 (10.0-20.0); Blood Urea Nitrogen 26 mg/dL (9-23); Calcium 10.5 mg/dL (8.7-10.4); Carbon Dioxide 27 mmol/L (20-31); Chloride 109 mmol/L (98-107); Glucose 110 mg/dL (74-106); Potassium 4.9 mmol/L (3.5-5.1); Sodium 144 mmol/L (136-145)
[2023-12-14 16:25] LABS: Bilirubin, Total 0.2 mg/dL (0.2-1.0)
[2023-12-14 16:51] LABS: Carcinoembryonic Antigen 5.93 ng/mL (<=5.0)
[2023-12-14 17:09] LABS: Folate (Folic Acid) > 48.00 ng/mL (>5.38)
== END | disposition home or self-care (01) ==
LOC: LAB 15:28
PROVIDERS: ATTEND Internal Medicine Gastroenterology
DX: D64.9 Anemia, unspecified (principal)
CPT/HCPCS: 36415; 80053; 82378; 82607; 82746; 82784; 83516; 84443; 85025; 86038; 86255

== ENCOUNTER 2024-01-31 13:06 | Emergency (ER) | payer OTHER ==
[~2024-01-31] VITALS: Ht 160 cm; Wt 59.1 kg
--- NOTE | 2024-01-31 13:19 | ED.PDOC ---
History of Present Illness HPI Comments 83-year-old female brought in by EMS presents with a chief complaint of syncope x onset today. Per EMS, patient was at [employer] and had a syncopal episode. Patient denies hitting her head and states that "I just didn't have lunch today". Patient reports that she possibly had a syncopal episode due to not eating properly today. Patient is alert and oriented. No other symptoms or modifying factors present at this time. Time Seen by MD: 13:13 Primary Care Provider: ABILIO Reviewed Notes: Medications, Allergies Allergies: Coded Allergies: Fish Allergy (Verified Allergy, Severe, 07/10/18) Tetracycline (Verified Allergy, Unknown, 07/05/18) Uncoded Allergies: TAPE (Allergy, Unknown, 07/05/18) Home Meds Active Scripts Ibuprofen Micronized (Ibuprofen) 600 Mg Tab, 600 MG PO Q6HPRN PRN for 5 Days, #20 TAB Prov:JEN RANGEL A MANAGER UNIX 04/09/23 Ibuprofen Micronized (Ibuprofen) 600 Mg Tab, 600 MG PO Q6HPRN PRN for 5 Days, #20 TAB Prov:JEN RANGEL MANAGER UNIX 04/09/23 Reported Medications Alendronate Sodium (ALENDRONATE SODIUM) 70 Mg/75 Ml Karolina, 70 MG OR QWEEKLY 07/05/18 Information Source: Patient, Emergency Med Personnel Mode of Arrival: EMS Severity: Moderate Timing: Minutes Duration: Since onset Prehospital treatment: IVF Past Medical History PAST MEDICAL HISTORY: HTN Surgical 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 Family History Family History: Unobtainable Social History Smoker: Non-Smoker Alcohol: Denies ETOH Use Drugs: Denies Drug Use Lives In: Home Constitutional: denies: chills, diaphoresis, fatigue, fever, malaise, sweats, weakness, others EENTM: denies: blurred vision, double vision, ear bleeding, ear discharge, ear drainage, ear pain, ear ringing, eye pain, eye redness, hearing loss, mouth pain, mouth swelling, nasal discharge, nose bleeding, nose congestion, nose pain, photophobia, tearing, throat pain, throat swelling, voice changes, others Respiratory: denies: cough, hemoptysis, orthopnea, SOB at rest, shortness of breath, SOB with excertion, stridor, wheezing, others Cardiovascular: reports: syncope; denies: chest pain, dizzy spells, diaphoresis, Dyspnea on exertion, edema, irregular heart beat, left arm pain, lightheadedness, palpitations, PND, others Gastrointestinal: denies: abdomen distended, abdominal pain, blood streaked bowels, constipated, diarrhea, dysphagia, difficulty swallowing, hematemesis, melena, nausea, poor appetite, poor fluid intake, rectal bleeding, rectal pain, vomiting, others Genitourinary: denies: abnormal vagina bleeding, burning, dyspareunia, dysuria, flank pain, frequency, hematuria, incontinence, pain, , vagina discharge, urgency, others Neurological: denies: dizziness, fainting, headache, left sided numbness, left sided weakness, numbness, paresthesia, pre-existing deficit, right sided numbness, right sided weakness, seizure, speech problems, tingling, tremors, weakness, others Musculoskeletal: denies: back pain, gout, joint pain, joint swelling, muscle pain, muscle stiffness, neck pain, others Integumetry: denies: bruises, change in color, change in hair/nails, dryness, laceration, lesions, lumps, rash, wounds, others Allergic/Immunocompromised: denies: Difficulty Healing, Frequent Infections, Hives, Itching, others Hematologic/Lymphatic: denies: anemia, blood clots, easy bleeding, easy bruising, swollen glands, others Endocrine: denies: excessive hunger, excessive sweating, excessive thirst, excessive urination, flushing, intolerance to cold, intolerance to heat, unexplained weight gain, unexplained weight loss, others Psychiatric: denies: anxiety, bipolar disorder, depression, hopeless, panic disorder, schizophrenia, sleepless, suicidal, others All Other Systems: Reviewed and Negative Physical Exam General Appearance: No Apparent Distress, Normal HEENT: Normal ENT Inspection, Pharynx Normal, TMs Normal Neck: Full Range of Motion, Non-Tender, Normal, Normal Inspection Respiratory: Chest Non-Tender, Lungs Clear, No Accessory Muscle Use, No Respiratory Distress, Normal Breath Sounds Cardiovascular: No Edema, No JVD, No Murmur, No Gallop, Normal Peripheral Pulses, Regular Rate/Rhythm Breast Exam: Deferred Gastrointestinal: No Organomegaly, Non Tender, No Pulsatile Mass, Normal Bowel Sounds, Soft Genitalia: Deferred Pelvic: Deferred Rectal: Deferred Extremities: No calf tenderness, Normal capillary refill, Normal inspection, Normal range of motion, Non-tender, No pedal edema Musculoskeletal : Apperance: Normal Neurologic: Alert, drive tester II-XII nml as Tested, No Motor Deficits, Normal Affect, Normal Mood, No Sensory Deficits Cerebellar Function: Normal Reflexes: Normal Skin: Dry, Normal Color, Warm Lymphatic: No Adenopathy Was a procedure done? Was a procedure done?: No Differential Dx Considerations may include: Electrolyte abnormality, infectious etiology, CVA, ACS X-Ray, Labs, Meds, VS Vital Signs Date Time Temp Pulse Resp B/P (MAP) Pulse Ox O2 Delivery O2 Flow Rate FiO2 01/31/24 13:10 98.1 74 18 137/56 (83) 98 Lab Test 01/31/24 13:59 Range/Units White Blood Count 8.0 4.4-10.8 10^3/uL Red Blood Count 3.42 L 4.0-5.20 10^6/uL Hemoglobin 8.8 L 12.2-16.2 g/dL Hematocrit 28.7 L 36.0-46.0 % Mean Corpuscular Volume 83.9 80.0-100.0 fL Mean Corpuscular Hemoglobin 25.7 L 28.0-32.0 pg Mean Corpuscular Hemoglobin Concent 30.6 L 32.0-36.0 g/dL Red Cell Distribution Width 14.5 H 11.8-14.3 % Platelet Count 258 140-450 10^3/uL Mean Platelet Volume 7.6 6.9-10.8 fL Neutrophils (%) (Auto) 74.3 37.0-80.0 % Lymphocytes (%) (Auto) 18.4 10.0-50.0 % Monocytes (%) (Auto) 6.0 0.0-12.0 % Eosinophils (%) (Auto) 0.2 0.0-7.0 % Basophils (%) (Auto) 1.1 0.0-2.0 % Neutrophils # (Auto) 5.9 1.6-8.6 10 ^3/uL Lymphocytes # (Auto) 1.5 0.4-5.4 10 ^3/uL Monocytes # (Auto) 0.5 0-1.3 10 ^3/uL Eosinophils # (Auto) 0 0-0.8 10 ^3/uL Basophils # (Auto) 0.1 0-0.2 10 ^3/uL Nucleated Red Blood Cells 0.0 % Sodium Level 139 136-145 mmol/L Potassium Level 4.9 3.5-5.1 mmol/L Chloride Level 111 H 98-107 mmol/L Carbon Dioxide Level 19 L 20-31 mmol/L Anion Gap 9 5-15 Blood Urea Nitrogen 24 H 9-23 mg/dL Creatinine 1.13 H 0.550-1.02 mg/dL Glomerular Filtration Rate Calc 48 >90 mL/min BUN/Creatinine Ratio 21.2 H 10.0-20.0 Serum Glucose 98 74-106 mg/dL Calcium Level 9.6 8.7-10.4 mg/dL Troponin I High Sensitivity 6 </=34 ng/L Current Medications Medications (Trade) Dose Ordered Sig/Tray Route Start Time Stop Time Status Last Admin Sodium Chloride 1,000 ml @ 1,000 mls/hr Q1H ONCE IV 01/31/24 13:15 01/31/24 14:14 DC 01/31/24 14:54 Time of 1ST Reevaluation: 13:43 Reevaluation 1ST: Unchanged Patient Education/Counseling: Diagnosis, Treatment, Prognosis Family Education/Counseling: No Family Present Departure 1 Departure Time of Disposition: 15:14 (Patient with altered mental status and confusion found to have a stroke CT scan. Unknown last known well. Patient also with a chronic subdural. We will admit patient for further workup.) Impression: Primary Impression: CVA (cerebral vascular accident) Qualified Codes: I63.9 - Cerebral infarction, unspecified Additional Impressions: Altered mental status Qualified Codes: R41.0 - Disorientation, unspecified Chronic subdural hematoma Acute metabolic encephalopathy Disposition: ADMITTED INPATIENT Admit to: Med Surg Condition: Serious Critical Care Note Critical Care Time?: Yes Critical care comment: CVA, metabolic encephalopathy Authorized and Performed by: Jennifer Basilio MD Total critical care time: Approximately 39 minutes Due to a high probability of clinically significant, life threatening deterioration, the patient required my highest level of preparedness to intervene emergently and I personally spent this critical care time directly and personally managing the patient. This critical care time included obtaining a history; examining the patient; pulse oximetry; ordering and review of studies; arranging urgent treatment with development of a management plan; evaluation of patient's response to treatment; frequent reassessment; and, discussions with other providers. This critical care time was performed to assess and manage the high probability of imminent, life-threatening deterioration that could result in multi-organ failure. It was exclusive of separately billable procedures and treating other patients and teaching time. Please see my other sections and the rest of the note for further information on patient assessment and treatment. Stability Stability form required: No I personally scribed for JENNIFER BASILIO MD ([email or web address]) on 01/31/24 at 13:19. Electronically submitted by Jono Abdalla ([email or web address]). JENNIFER BASILIO MD Jan 31, 2024 13:19
--- NOTE | 2024-01-31 14:02 | DVH ---
CLINICAL INFORMATION: 83 years old, Female; syncope. TECHNIQUE: Single AP portable chest radiograph was obtained. COMPARISON: XY CHEST PORTABLE on DOS: 05/24/22 FINDINGS: Lungs: Hyperaeration of the lungs suggesting emphysematous changes. No focal consolidation. No pneumo thorax or pleural effusion. Cardiac: Heart size is within normal limits. Dense mitral annular calcification. Pulmonary vasculature: Unremarkable. Mediastinum/ishaan: Moderate atherosclerotic calcification of the aortic arch. Bones: No acute osseous abnormality identified. Other: No other significant findings. IMPRESSION: 1. No evidence of acute disease in the chest. 2. Emphysematous changes and additional nonacute findings as detailed above.
--- NOTE | 2024-01-31 14:16 | DVH ---
EXAM: CT HEAD WITHOUT CONTRAST HISTORY: syncope COMPARISON: CT HEAD WITHOUT CONTRAST on DOS: 05/24/22, CT CERVICAL WITHOUT CONTRAST on DOS: 05/24/22, C T ABD PELVIS WO CONTRAST on DOS: 05/06/19 TECHNIQUE: Axial images were obtained and reformatted in coronal and sagittal planes. All CT scans at this medical facility are performed using dose modulation techniques as appropriate t o a performed exam including the following: Automated exposure control was utilized; adjustment of th e MA and/or KV according to patient size; and use of iterative reconstruction technique. CT Dose: CTDI volume is 50.87 mGy. Dose-length product is 1002.63 mGy*cm FINDINGS: Supratentorial Region: No evidence for large acute territorial ischemia. Small right frontoparietal subdural hematoma is seen measuring 2-3 mm in thickness. Stable approximately 2 cm coarse benign-catherine earing right dural calcification. Posterior Fossa: Chronic appearing right inferior cerebellar lobe infarct, which was not seen in the prior study. Brainstem: Unremarkable. Sellar/Suprasellar Region: Unremarkable. Ventricles, Cisterns, Sulci: Age-appropriate. Orbits: Unremarkable. Paranasal Sinuses: Unremarkable. Mastoid Air Cells: Unremarkable. Vasculature: Intracranial arterial calcified plaque formation noted. Bones/Soft Tissues: No acute abnormality. Other: None. IMPRESSION: 1. Small, age-indeterminate right frontoparietal subdural hematoma measuring 2-3 mm in thickness wit hout mass effect or midline shift. This is significantly smaller compared to prior CT scan. 2. Chronic appearing right inferior cerebellar lobe infarct, not present in the prior study. Dr. Leblanc was notified of the findings on 01/31/2024 at approximately 2:10 p.m..
[2024-01-31 14:17] LABS: Basophils # (auto) 0.1 10 ^3/uL (0-0.2); Basophils % (auto) 1.1 % (0.0-2.0); Eosinophils # (auto) 0 10 ^3/uL (0-0.8); Eosinophils % (auto) 0.2 % (0.0-7.0); Hematocrit 28.7 % (36.0-46.0); Hemoglobin 8.8 g/dL (12.2-16.2); Lymphocytes # (auto) 1.5 10 ^3/uL (0.4-5.4); Lymphocytes % (auto) 18.4 % (10.0-50.0); Mean Corpuscular Hemoglobin 25.7 pg (28.0-32.0); Mean Corpuscular Hgb Conc. 30.6 g/dL (32.0-36.0); Mean Corpuscular Volume 83.9 fL (80.0-100.0); Monocytes # (auto) 0.5 10 ^3/uL (0-1.3); Neutrophils # (auto) 5.9 10 ^3/uL (1.6-8.6); Neutrophils % (auto) 74.3 % (37.0-80.0); Platelet Count (auto) 258 10^3/uL (140-450); Red Blood Cells 3.42 10^6/uL (4.0-5.20); Red Cell Distribution Width 14.5 % (11.8-14.3)
[2024-01-31 14:31] LABS: Chloride 111 mmol/L (98-107); Potassium 4.9 mmol/L (3.5-5.1); Sodium 139 mmol/L (136-145)
[2024-01-31 14:32] LABS: Anion Gap 9 (5-15); Carbon Dioxide 19 mmol/L (20-31)
[2024-01-31 14:33] LABS: Calcium 9.6 mg/dL (8.7-10.4)
[2024-01-31 14:37] LABS: Glucose 98 mg/dL (74-106)
[2024-01-31 14:38] LABS: BUN/Creatinine Ratio 21.2 (10.0-20.0); Blood Urea Nitrogen 24 mg/dL (9-23)
[2024-01-31 14:45] VITALS: PULSE 72; RESP 16; O2SAT 100
[2024-01-31] MEDS: SODIUM CHLORIDE 0.9% 1,000 ML IV ONE (14:54)
[2024-01-31] MEDS: HALOPERIDOL LACTATE 5 MG/ML INJ VIAL IM ONE (16:15)
[2024-01-31 17:40] VITALS: BP 119/40; PULSE 75; RESP 14; TEMP 97.5; O2SAT 99
== END 2024-01-31 17:57 | disposition left against medical advice (07) ==
LOC: ER 13:06 → EDBD 13:06 → EDUNIT# 13:06 → ER 17:56
DX: I62.03 Nontraumatic chronic subdural hemorrhage (principal); I63.9 Cerebral infarction, unspecified; G93.41 Metabolic encephalopathy; R41.82 Altered mental status, unspecified; I10 Essential (primary) hypertension; Z90.710 Acquired absence of both cervix and uterus; Z88.1 Allergy status to other antibiotic agents; Z79.899 Other long term (current) drug therapy; Z91.013 Allergy to seafood
CPT/HCPCS: 36415; 70450; 71045; 80048; 84484; 85025; 96360; 96372; 99285; J1630; J7030

== ENCOUNTER → 2024-02-14 | Outpatient (CLI) | payer OTHER ==
[2024-02-14 12:49] LABS: Basophils # (auto) 0 10 ^3/uL (0-0.2); Basophils % (auto) 0.4 % (0.0-2.0); Eosinophils # (auto) 0 10 ^3/uL (0-0.8); Eosinophils % (auto) 0.1 % (0.0-7.0); Hemoglobin 7.8 g/dL (12.2-16.2); Lymphocytes # (auto) 1.1 10 ^3/uL (0.4-5.4); Lymphocytes % (auto) 13.7 % (10.0-50.0); Mean Corpuscular Hemoglobin 25.5 pg (28.0-32.0); Mean Corpuscular Hgb Conc. 32.4 g/dL (32.0-36.0); Mean Corpuscular Volume 78.7 fL (80.0-100.0); Monocytes # (auto) 0.3 10 ^3/uL (0-1.3); Monocytes % (auto) 3.7 % (0.0-12.0); Neutrophils # (auto) 6.8 10 ^3/uL (1.6-8.6); Neutrophils % (auto) 82.1 % (37.0-80.0); Platelet Count (auto) 415 10^3/uL (140-450); Red Blood Cells 3.05 10^6/uL (4.0-5.20); Red Cell Distribution Width 14.1 % (11.8-14.3); White Blood Cell 8.3 10^3/uL (4.4-10.8)
[2024-02-14 13:41] LABS: Alanine Aminotransferase 13 U/L (7-40); Albumin 4.1 g/dL (3.2-4.8); Alkaline Phosphatase 100 U/L (46-116); Anion Gap 7 (5-15); BUN/Creatinine Ratio 30.4 (10.0-20.0); Bilirubin, Total 0.3 mg/dL (0.2-1.0); Calcium 9.7 mg/dL (8.7-10.4); Carbon Dioxide 25 mmol/L (20-31); Chloride 109 mmol/L (98-107); Glucose 115 mg/dL (74-106); Potassium 4.2 mmol/L (3.5-5.1); Sodium 141 mmol/L (136-145)
[2024-02-14 13:42] LABS: Aspartate Aminotransferase 8 U/L (13-40); Blood Urea Nitrogen 28 mg/dL (9-23); Total Protein 6.1 g/dL (5.7-8.2)
== END | disposition home or self-care (01) ==
LOC: LAB 12:25
PROVIDERS: ATTEND Internal Medicine
DX: N18.31 Chronic kidney disease, stage 3a (principal); D63.1 Anemia in chronic kidney disease
CPT/HCPCS: 36415; 80053; 85025

== ENCOUNTER → 2024-03-28 | Outpatient (CLI) | payer OTHER ==
[2024-03-28 15:35] LABS: Basophils # (auto) 0 10 ^3/uL (0-0.2); Eosinophils # (auto) 0 10 ^3/uL (0-0.8)
[2024-03-28 15:37] LABS: Basophils % (auto) 0.3 % (0.0-2.0); Hematocrit 30.6 % (36.0-46.0); Hemoglobin 9.6 g/dL (12.2-16.2); Lymphocytes # (auto) 1.2 10 ^3/uL (0.4-5.4); Lymphocytes % (auto) 13.2 % (10.0-50.0); Mean Corpuscular Hemoglobin 25.5 pg (28.0-32.0); Mean Corpuscular Hgb Conc. 31.4 g/dL (32.0-36.0); Mean Corpuscular Volume 81.2 fL (80.0-100.0); Monocytes # (auto) 0.5 10 ^3/uL (0-1.3); Monocytes % (auto) 5.5 % (0.0-12.0); Neutrophils # (auto) 7.3 10 ^3/uL (1.6-8.6); Platelet Count (auto) 427 10^3/uL (140-450); Red Blood Cells 3.76 10^6/uL (4.0-5.20); Red Cell Distribution Width 16.7 % (11.8-14.3)
[2024-03-28 16:27] LABS: % Iron Saturation 25.4 % (15-50)
[2024-03-28 16:29] LABS: Alanine Aminotransferase 17 U/L (7-40); Albumin 4.4 g/dL (3.2-4.8); Anion Gap 6 (5-15); Aspartate Aminotransferase 15 U/L (13-40); BUN/Creatinine Ratio 24.5 (10.0-20.0); Calcium 9.9 mg/dL (8.7-10.4); Carbon Dioxide 28 mmol/L (20-31); Potassium 4.6 mmol/L (3.5-5.1); Sodium 142 mmol/L (136-145); Total Protein 6.6 g/dL (5.7-8.2)
[2024-03-28 16:31] LABS: Carcinoembryonic Antigen 3.95 ng/mL (<=5.0); Ferritin 17.1 ng/mL (10-291)
[2024-03-28 16:34] LABS: Alkaline Phosphatase 131 U/L (46-116); Bilirubin, Total 0.2 mg/dL (0.2-1.0); Blood Urea Nitrogen 27 mg/dL (9-23); Chloride 108 mmol/L (98-107); Glucose 138 mg/dL (74-106)
[2024-03-29 09:06] LABS: Immunoglobulin A 75 mg/dL (64-422)
[2024-03-31 07:06] LABS: Endomysial IgA Antibody Negative (Negative)
[2024-03-31 16:06] LABS: t-Transglutaminase (tTG) IgA <2 U/mL (0-3)
== END | disposition home or self-care (01) ==
LOC: LAB 15:18
PROVIDERS: ATTEND Internal Medicine Gastroenterology
DX: D64.9 Anemia, unspecified (principal)
CPT/HCPCS: 36415; 80053; 82378; 82728; 82784; 83516; 83540; 83550; 84443; 85025; 86255

== ENCOUNTER → 2024-05-01 | Outpatient (CLI) | payer OTHER ==
[2024-05-01 11:47] LABS: Basophils # (auto) 0 10 ^3/uL (0-0.2); Basophils % (auto) 0.4 % (0.0-2.0); Eosinophils # (auto) 0 10 ^3/uL (0-0.8); Eosinophils % (auto) 0.4 % (0.0-7.0); Monocytes # (auto) 0.5 10 ^3/uL (0-1.3)
[2024-05-01 11:50] LABS: Hematocrit 31.5 % (36.0-46.0); Hemoglobin 9.9 g/dL (12.2-16.2); Lymphocytes # (auto) 1.4 10 ^3/uL (0.4-5.4); Lymphocytes % (auto) 13.3 % (10.0-50.0); Mean Corpuscular Hemoglobin 25.3 pg (28.0-32.0); Mean Corpuscular Hgb Conc. 31.4 g/dL (32.0-36.0); Mean Corpuscular Volume 80.4 fL (80.0-100.0); Monocytes % (auto) 4.6 % (0.0-12.0); Neutrophils # (auto) 8.2 10 ^3/uL (1.6-8.6); Neutrophils % (auto) 81.3 % (37.0-80.0); Platelet Count (auto) 453 10^3/uL (140-450); Red Blood Cells 3.92 10^6/uL (4.0-5.20); Red Cell Distribution Width 15.5 % (11.8-14.3); White Blood Cell 10.1 10^3/uL (4.4-10.8)
== END | disposition home or self-care (01) ==
LOC: LAB 11:10
PROVIDERS: ATTEND Internal Medicine
DX: Z12.11 Encounter for screening for malignant neoplasm of colon (principal); D64.9 Anemia, unspecified
CPT/HCPCS: 36415; 82728; 83540; 83550; 85025

== ENCOUNTER → 2024-07-03 | Outpatient (CLI) | payer OTHER ==
[2024-07-03 13:28] LABS: Basophils # (auto) 0 10 ^3/uL (0-0.2); Eosinophils # (auto) 0 10 ^3/uL (0-0.8); Eosinophils % (auto) 0.1 % (0.0-7.0); Hemoglobin 8.8 g/dL (12.2-16.2); Lymphocytes # (auto) 0.9 10 ^3/uL (0.4-5.4); Mean Corpuscular Hemoglobin 24.5 pg (28.0-32.0); Monocytes # (auto) 0.4 10 ^3/uL (0-1.3); Neutrophils # (auto) 7.3 10 ^3/uL (1.6-8.6); White Blood Cell 8.6 10^3/uL (4.4-10.8)
[2024-07-03 13:29] LABS: Basophils % (auto) 0.2 % (0.0-2.0); Hematocrit 28.1 % (36.0-46.0); Lymphocytes % (auto) 10.9 % (10.0-50.0); Mean Corpuscular Hgb Conc. 31.2 g/dL (32.0-36.0); Mean Corpuscular Volume 78.3 fL (80.0-100.0); Monocytes % (auto) 4.2 % (0.0-12.0); Neutrophils % (auto) 84.6 % (37.0-80.0); Platelet Count (auto) 467 10^3/uL (140-450); Red Blood Cells 3.59 10^6/uL (4.0-5.20)
[2024-07-03 13:48] LABS: Alanine Aminotransferase 13 U/L (7-40); Albumin 4.2 g/dL (3.2-4.8); Alkaline Phosphatase 97 U/L (46-116); Anion Gap 8 (5-15); Calcium 9.7 mg/dL (8.7-10.4); Carbon Dioxide 29 mmol/L (20-31); Chloride 104 mmol/L (98-107); Potassium 4.4 mmol/L (3.5-5.1); Sodium 141 mmol/L (136-145); Total Protein 6.4 g/dL (5.7-8.2)
[2024-07-03 13:49] LABS: Aspartate Aminotransferase 11 U/L (13-40); Bilirubin, Total 0.3 mg/dL (0.2-1.0); Blood Urea Nitrogen 27 mg/dL (9-23); Creatine Kinase IFCC 20 U/L (34-145); Glucose 141 mg/dL (74-106)
== END | disposition home or self-care (01) ==
LOC: LAB 13:05
PROVIDERS: ATTEND Internal Medicine
DX: D53.8 Other specified nutritional anemias (principal); D64.9 Anemia, unspecified; M19.90 Unspecified osteoarthritis, unspecified site
CPT/HCPCS: 36415; 80053; 82550; 84443; 85025

== ENCOUNTER 2024-08-28 08:22 | Outpatient (CLI) | payer OTHER ==
[2024-08-28 09:26] LABS: Erythrocyte Sedimentation Rate 26 mm/hr (0-20)
[2024-08-28 09:28] LABS: Alanine Aminotransferase 10 U/L (7-40); Alkaline Phosphatase 87 U/L (46-116); Anion Gap 10 (5-15); Aspartate Aminotransferase 16 U/L (<34); BUN/Creatinine Ratio 21.6 (10.0-20.0); Blood Urea Nitrogen 22 mg/dL (9-23); Calcium 9.5 mg/dL (8.7-10.4); Carbon Dioxide 24 mmol/L (20-31); Glucose 99 mg/dL (74-106); Sodium 143 mmol/L (136-145); Total Protein 6.1 g/dL (5.7-8.2)
[2024-08-28 09:31] LABS: Bilirubin, Total 0.3 mg/dL (0.2-1.0); Chloride 109 mmol/L (98-107)
[2024-08-28 09:39] LABS: CRP High Sensitivity 0.91 mg/dL (<1.0)
[2024-08-28 11:03] LABS: Basophils # (auto) 0.1 10 ^3/uL (0-0.2); Basophils % (auto) 0.6 % (0.0-2.0); Eosinophils # (auto) 0.1 10 ^3/uL (0-0.8); Eosinophils % (auto) 0.8 % (0.0-7.0); Hematocrit 27.4 % (36.0-46.0); Hemoglobin 8.6 g/dL (12.2-16.2); Lymphocytes # (auto) 1.2 10 ^3/uL (0.4-5.4); Lymphocytes % (auto) 12.4 % (10.0-50.0); Mean Corpuscular Hemoglobin 24.1 pg (28.0-32.0); Mean Corpuscular Hgb Conc. 31.5 g/dL (32.0-36.0); Mean Corpuscular Volume 76.5 fL (80.0-100.0); Monocytes # (auto) 0.8 10 ^3/uL (0-1.3); Monocytes % (auto) 8.5 % (0.0-12.0); Neutrophils # (auto) 7.4 10 ^3/uL (1.6-8.6); Neutrophils % (auto) 77.7 % (37.0-80.0); Platelet Count (auto) 520 10^3/uL (140-450); Red Blood Cells 3.59 10^6/uL (4.0-5.20); Red Cell Distribution Width 15.3 % (11.8-14.3); White Blood Cell 9.5 10^3/uL (4.4-10.8)
== END 2024-08-28 17:00 | disposition home or self-care (01) ==
LOC: LAB 08:22
PROVIDERS: ATTEND Internal Medicine
DX: M06.9 Rheumatoid arthritis, unspecified (principal); D53.9 Nutritional anemia, unspecified
CPT/HCPCS: 36415; 80053; 85025; 85652; 86141

== ENCOUNTER 2024-08-28 09:04 | Outpatient (CLI) | payer OTHER ==
--- NOTE | 2024-08-28 15:03 | DVH ---
Procedure: NM BONE WHOLE BODY Exam Date: 08/28/2024 11:38 AM Reason for study/Clinical History: ABNORMAL CT SCAN Comparison Study: None Prior correlative imaging: CT dated 08/13/2024 Nuclear Medicine Whole Body Bone Scan Technique: Following the intravenous administration of 25.6 millicuries of technetium 99m labeled MDP, whole bod y images in the anterior and posterior projections were obtained 3 hours following the administration of radiopharmaceutical. Findings: There is mild symmetric multifocal activity overlying both shoulders consistent with mild degenerativ e change. The expected mild activity is noted overlying both kidneys and the bladder without evidence of obstru ction. Impression: There is no evidence of focal increased uptake consistent with bony metastatic disease. Mild multifocal activity consistent with degenerative changes as described above.
== END 2024-08-28 17:00 | disposition home or self-care (01) ==
LOC: XY 09:04
PROVIDERS: ATTEND Internal Medicine
DX: R93.0 Abnormal findings on diagnostic imaging of skull and head, not elsewhere classified (principal); K63.89 Other specified diseases of intestine
CPT/HCPCS: 78306; A9503

== ENCOUNTER 2024-10-17 10:04 | Outpatient (CLI) | payer OTHER ==
[2024-10-17 11:11] LABS: Hemoglobin 7.2 g/dL (12.2-16.2); Nucleated Red Blood Cells % 0.0 %
[2024-10-17 11:14] LABS: Hematocrit 23.2 % (36.0-46.0); Mean Corpuscular Hemoglobin 24.3 pg (28.0-32.0); Mean Corpuscular Volume 78.2 fL (80.0-100.0)
[2024-10-17 11:26] LABS: Albumin 3.8 g/dL (3.2-4.8); Alkaline Phosphatase 85 U/L (46-116); Anion Gap 10 (5-15); BUN/Creatinine Ratio 20.2 (10.0-20.0); Blood Urea Nitrogen 21 mg/dL (9-23); Calcium 8.8 mg/dL (8.7-10.4); Carbon Dioxide 25 mmol/L (20-31); Chloride 106 mmol/L (98-107); Glucose 103 mg/dL (74-106); Potassium 4.0 mmol/L (3.5-5.1); Sodium 141 mmol/L (136-145); Total Protein 5.8 g/dL (5.7-8.2)
[2024-10-17 11:27] LABS: Alanine Aminotransferase 9 U/L (7-40); Bilirubin, Total 0.3 mg/dL (0.2-1.0); Creatine Kinase IFCC 24 U/L (34-145)
== END 2024-10-17 17:00 | disposition home or self-care (01) ==
LOC: LAB 10:04
PROVIDERS: ATTEND Internal Medicine
DX: D69.6 Thrombocytopenia, unspecified (principal); D64.9 Anemia, unspecified
CPT/HCPCS: 36415; 80053; 82550; 85025; 85652

== ENCOUNTER 2024-11-08 12:56 | Outpatient (CLI) | payer OTHER ==
[2024-11-08 13:25] LABS: Hematocrit 23.6 % (36.0-46.0); Hemoglobin 7.2 g/dL (12.2-16.2); Mean Corpuscular Hemoglobin 23.4 pg (28.0-32.0); Mean Corpuscular Volume 76.5 fL (80.0-100.0); Nucleated Red Blood Cells % 0.0 %
== END 2024-11-08 17:00 | disposition home or self-care (01) ==
LOC: LAB 12:56
PROVIDERS: ATTEND Internal Medicine
DX: D64.9 Anemia, unspecified (principal)
CPT/HCPCS: 36415; 85025

== ENCOUNTER 2024-12-05 13:16 | Outpatient (CLI) | payer OTHER ==
[2024-12-05 14:06] LABS: Albumin 3.7 g/dL (3.2-4.8); Alkaline Phosphatase 81 U/L (46-116); Anion Gap 12 (5-15); BUN/Creatinine Ratio 29.4 (10.0-20.0); Carbon Dioxide 23 mmol/L (20-31); Potassium 4.1 mmol/L (3.5-5.1); Sodium 144 mmol/L (136-145); Total Protein 6.0 g/dL (5.7-8.2)
[2024-12-05 14:07] LABS: Alanine Aminotransferase < 9 U/L (7-40); Bilirubin, Total 0.2 mg/dL (0.2-1.0); Blood Urea Nitrogen 30 mg/dL (9-23); Calcium 8.4 mg/dL (8.7-10.4); Chloride 109 mmol/L (98-107); Glucose 155 mg/dL (74-106)
== END 2024-12-06 17:00 | disposition home or self-care (01) ==
LOC: LAB 13:16
PROVIDERS: ATTEND Internal Medicine
DX: D64.9 Anemia, unspecified (principal)
CPT/HCPCS: 36415; 80053

== ENCOUNTER 2024-12-18 17:36 | Inpatient (IN) | payer OTHER, MEDICAID ==
[~2024-12-18] VITALS: Ht 154.9 cm; Wt 60.6 kg
--- NOTE | 2024-12-18 18:29 | ED.PDOC ---
HPI (NEURO) HPI Comments 84-year-old female with a history of dementia brought in by ambulance from home after neighbors found her on the ground and in her house. Unknown down time. Noted to have bruising to right forearm and hand. 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 Family History Family History: Unobtainable Social History Smoker: Non-Smoker Alcohol: Denies ETOH Use Drugs: Denies Drug Use Lives In: Home Constitutional: reports: weakness Unable to Obtain due to: Altered Mental Status, Dementia Physical Exam Exam Comments Elderly, frail, ill-appearing General Appearance: Moderate Distress HEENT: Other (Dry mucous membranes) Neck: Full Range of Motion, Non-Tender, Normal, Normal Inspection Respiratory: Chest Non-Tender, Lungs Clear, No Accessory Muscle Use, No Respiratory Distress, Normal Breath Sounds Cardiovascular: No Edema, No JVD, No Murmur, No Gallop, Normal Peripheral Pulses, Regular Rate/Rhythm Breast Exam: Deferred Gastrointestinal: No Organomegaly, Non Tender, No Pulsatile Mass, Normal Bowel Sounds, Soft Genitalia: Deferred Pelvic: Deferred Rectal: Deferred Extremities: Other (Contusion with ecchymosis to right forearm and right hand) Musculoskeletal : Apperance: Normal Neurologic: Other (Lethargic, confused, responds to loud voice) Cerebellar Function: Normal Reflexes: Normal Skin: Dry, Normal Color, Warm Lymphatic: No Adenopathy Was a procedure done? Was a procedure done?: No Differential Diagnosis (SZ) Seizure: Psychogenic Seizure, Alcohol Withdrawl, Anticonvulsant Withdrawl, Closed Head Injury, CVA/TIA, Drug Ingestion, Hypocalcemia, Hypoglycemia, Hyponatremia, Mass Lesion, Meningitis, Syncope, Encephalopathy, Other X-Ray, Labs, Meds, VS Vital Signs Date Time Temp Pulse Resp B/P (MAP) Pulse Ox O2 Delivery O2 Flow Rate FiO2 12/18/24 20:00 95.7 88 23 120/42 (68) 99 95.7 12/18/24 19:00 95.5 94 26 106/49 (68) 99 95.5 12/18/24 18:40 95.0 91 26 106/49 (68) 96 95.0 12/18/24 18:40 91 26 96 Room Air* 0 21 12/18/24 17:49 98.1 84 16 108/74 98 98.1 12/18/24 17:43 76 Lab Test 12/18/24 20:47 12/18/24 19:09 12/18/24 18:48 Range/Units Stool Occult Blood Sample #3 Pending White Blood Count 16.7 H 4.4-10.8 10^3/uL Red Blood Count 2.81 L 4.0-5.20 10^6/uL Hemoglobin 6.0 *L 12.2-16.2 g/dL Hematocrit 20.7 L 36.0-46.0 % Mean Corpuscular Volume 73.7 L 80.0-100.0 fL Mean Corpuscular Hemoglobin 21.2 L 28.0-32.0 pg Mean Corpuscular Hemoglobin Concent 28.8 L 32.0-36.0 g/dL Red Cell Distribution Width 16.4 H 11.8-14.3 % Platelet Count 597 H 140-450 10^3/uL Mean Platelet Volume 6.8 L 6.9-10.8 fL Neutrophils (%) (Auto) 89.4 H 37.0-80.0 % Lymphocytes (%) (Auto) 3.3 L 10.0-50.0 % Monocytes (%) (Auto) 7.3 0.0-12.0 % Eosinophils (%) (Auto) 0.0 0.0-7.0 % Basophils (%) (Auto) 0.0 0.0-2.0 % Neutrophils # (Auto) 15.0 H 1.6-8.6 10 ^3/uL Lymphocytes # (Auto) 0.5 0.4-5.4 10 ^3/uL Monocytes # (Auto) 1.2 0-1.3 10 ^3/uL Eosinophils # (Auto) 0 0-0.8 10 ^3/uL Basophils # (Auto) 0 0-0.2 10 ^3/uL Nucleated Red Blood Cells 0.9 % Prothrombin Time 12.0 H 9.3-11.8 sec Prothrombin Time INR 1.15 0.9-1.15 Activated Partial Thromboplast Time 26.3 24.5-34.5 SEC Sodium Level 155 H 136-145 mmol/L Potassium Level 3.8 3.5-5.1 mmol/L Chloride Level 118 H 98-107 mmol/L Carbon Dioxide Level 19 L 20-31 mmol/L Anion Gap 18 H 5-15 Blood Urea Nitrogen 77 H 9-23 mg/dL Creatinine 1.03 H 0.550-1.02 mg/dL Glomerular Filtration Rate Calc 53 >90 mL/min BUN/Creatinine Ratio 74.8 H 10.0-20.0 Serum Glucose 99 74-106 mg/dL Lactic Acid Level 1.4 0.4-2.0 mmol/L Calcium Level 8.3 L 8.7-10.4 mg/dL Magnesium Level 3.2 H 1.6-2.6 mg/dL Iron Level 12 L 50-170 ug/dL Total Iron Binding Capacity 296 250-425 ug/dL Percent Iron Saturation 4.1 L 15-50 % Total Bilirubin 0.7 0.2-1.0 mg/dL Aspartate Amino Transferase (AST) 68 H 13-40 U/L Alanine Aminotransferase (ALT) 82 H 7-40 U/L Alkaline Phosphatase 90 46-116 U/L Creatine Kinase 445 H 34-145 U/L Total Protein 5.8 5.7-8.2 g/dL Albumin 3.5 3.2-4.8 g/dL Urine Color Yellow Yellow Urine Clarity Clear Clear Urine pH 5.5 5.0-9.0 Urine Specific [place] 1.025 1.001-1.035 Urine Protein Negative Negative Urine Ketones 1+ H Negative Urine Blood Negative Negative /uL Urine Nitrite Negative Negative Urine Bilirubin Negative Negative Urine Urobilinogen Normal Negative mg/dL Urine Leukocyte Esterase Negative Negative /uL Urine RBC <1 0 - 4 /hpf Urine Microscopic WBC 1 0-5 /HPF Urine Squamous Epithelial Cells Few <5 /hpf Urine Bacteria None seen None Seen /hpf Urine Mucus Few None Seen Urine Glucose Normal Normal mg/dL Current Medications Medications (Trade) Dose Ordered Sig/Tray Route Start Time Stop Time Status Last Admin Sodium Chloride 1,000 ml @ 1,000 mls/hr Q1H ONCE IVB 12/18/24 18:30 12/18/24 19:29 DC 12/18/24 18:30 Time of 1ST Reevaluation: 18:28 Reevaluation 1ST: Unchanged Patient Education/Counseling: Pt Unresponsive Family Education/Counseling: No Family Present Departure 1 Departure Time of Disposition: 21:20 Impression: Primary Impression: Acute metabolic encephalopathy Additional Impressions: Dehydration Dementia Closed fracture of right wrist Symptomatic anemia GI bleed Disposition: ADMITTED INPATIENT Admit to: Med Surg Condition: Guarded Comments 84-year-old female comes from home with decreased mental status found on the ground by neighbors. On her lab results she is very anemic with an H and H of 6 and 21. The white blood cell count is elevated 16.7. She looks like she is dehydrated on her lab results with a sodium that is high at 155 and chloride is elevated at 118. BUN and creatinine are elevated at 77 and 1.03. Total CK is elevated 445. On her x-rays it looks like she broke her right wrist. A volar splint was applied. Patient was given IV fluids. Patient was given a blood transfusion. Patient will need admission for supportive care and further workup. Critical Care Note Critical Care Time?: Yes (35 min-critical care time only) Critical care comment: Total critical care time: Approximately 36 minutes Due to a high probability of clinically significant, life threatening deterioration, the patient required my highest level of preparedness to intervene emergently and I personally spent this critical care time directly and personally managing the patient. This critical care time included obtaining a history; examining the patient; pulse oximetry; ordering and review of studies; arranging urgent treatment with development of a management plan; evaluation of patient's response to treatment; frequent reassessment; and, discussions with other providers. This critical care time was performed to assess and manage the high probability of imminent, life-threatening deterioration that could result in multi-organ failure. It was exclusive of separately billable procedures and treating other patients. Stability Stability form required: No Heart Score Heart Score: Heart Score Response (Comments) Value History N/A 0 EKG N/A 0 Age N/A 0 Risk Factors N/A 0 Troponin N/A 0 Total 0 JILL ARMAS MD Dec 18, 2024 18:29
[2024-12-18] MEDS: SODIUM CHLORIDE 0.9% 1,000 ML IVB ONE (18:30)
[2024-12-18 18:40] VITALS: PULSE 91; RESP 26; O2SAT 96
[2024-12-18 19:19] LABS: Urine Protein, UAD Negative (Negative)
[2024-12-18 19:26] LABS: Hematocrit 20.7 % (36.0-46.0); Mean Corpuscular Hemoglobin 21.2 pg (28.0-32.0); Mean Corpuscular Volume 73.7 fL (80.0-100.0); Nucleated Red Blood Cells % 0.9 %
[2024-12-18 19:38] LABS: INR 1.15 (0.9-1.15); Partial Thromboplastin Time 26.3 SEC (24.5-34.5); Prothrombin Time 12.0 sec (9.3-11.8)
[2024-12-18 19:44] LABS: Albumin 3.5 g/dL (3.2-4.8); Alkaline Phosphatase 90 U/L (46-116); Anion Gap 18 (5-15); BUN/Creatinine Ratio 74.8 (10.0-20.0); Bilirubin, Total 0.7 mg/dL (0.2-1.0); Glucose 99 mg/dL (74-106); Potassium 3.8 mmol/L (3.5-5.1); Total Protein 5.8 g/dL (5.7-8.2)
[2024-12-18 19:46] LABS: Chloride 118 mmol/L (98-107); Sodium 155 mmol/L (136-145)
[2024-12-18 19:47] LABS: Alanine Aminotransferase 82 U/L (7-40); Blood Urea Nitrogen 77 mg/dL (9-23); Calcium 8.3 mg/dL (8.7-10.4); Carbon Dioxide 19 mmol/L (20-31); Creatine Kinase IFCC 445 U/L (34-145); Magnesium 3.2 mg/dL (1.6-2.6)
[2024-12-18 19:49] LABS: Hemoglobin 6.0 g/dL (12.2-16.2)
--- NOTE | 2024-12-18 19:52 | DVH ---
CHEST RADIOGRAPH Indication: SOB Technique: Single frontal view of the chest was obtained Comparison: XY CHEST PORTABLE on DOS: 01/31/24, XY CHEST PORTABLE on DOS: 05/24/22 FINDINGS: Lines and Tubes: None Lungs: Hyperinflation of the lungs mild interstitial prominence right upper lung zone opacity. Pleura: No effusion. No pneumothorax. Cardiomediastinal contours: Borderline cardiomegaly. Bones: No acute osseous abnormality. IMPRESSION: Hyperinflation with mild interstitial prominence of the lungs which may be from Emphysematous changes . Opacity perihilar opacities which may represent atypical pneumonia /atypical pulmonary edema.
--- NOTE | 2024-12-18 19:56 | DVH ---
CLINICAL INDICATION: fall injury TECHNIQUE: Flu radiographic views of the right forearm were obtained. Comparison: None FINDINGS/IMPRESSION: There is acute displaced fracture of the distal radius metaphysis with slight dorsal angulation. Smal l avulsed bony fragment from the ulnar styloid. There is associated soft tissue edema.
--- NOTE | 2024-12-18 20:01 | DVH ---
CLINICAL INDICATION: fall injury TECHNIQUE: 1 radiographic views of the pelvis were obtained. Comparison: PELVIS WO CONTRAST on DOS: 05/06/19 FINDINGS/IMPRESSION: Proximal left femur demonstrates internal fixation device. Old healed fractures of the right superior and inferior pubic ramus Right femoral fracture is of clinical concern recommend CT of the pelvis.
--- NOTE | 2024-12-18 20:05 | DVH ---
COMPUTERIZED TOMOGRAPHY OF THE HEAD WITHOUT CONTRAST REASON FOR STUDY: fall injury ALOC COMPARISON: MRI BRAIN HEAD WO CONTRAST on DOS: 10/17/24, CT HEAD WITHOUT CONTRAST on DOS: 08/13/24, CT H EAD WITHOUT CONTRAST on DOS: 01/31/24, CT HEAD WITHOUT CONTRAST on DOS: 02/02/23, CT HEAD WITHOUT CON TRAST on DOS: 05/24/22 TECHNIQUE: Helical tomographic scans were obtained through the brain. 2-D coronal and sagittal refor matted images are provided. Radiation optimization: All CT scans at this facility use at least one of these dose optimization techniques: Automated exposure control mA and/or kV adjustment per patient s ize (includes targeted exams where dose is matched to clinical indication) or iterative reconstructio n. RADIATION DOSE: CTDI: 50 mGy DLP: 1093 mGy-cm FINDINGS: Evaluation is severely degraded by patient motion. No suspicious intracranial hyperdensity to suggest acute blood. There is slightly decreased appearance of subtle dural thickening versus old blood in the lateral frontotemporal region. There is an old infarct in the inferior right cerebellum. There is unchanged appearance of a coarse extra-axial calcification in the posterior right frontal r egion. There is no mass effect nor midline shift. There is moderate generalized volume loss with com pensatory enlargement of the CSF spaces. There is no hydrocephalus. The suprasellar cistern is intact . There are scattered periventricular and deep white matter hypodensities that are most consistent wi th chronic microangiopathic changes. The subcentimeter left parietal calvarial lytic lesion is unchan ged in appearance. The calvarium is otherwise intact. The visualized mastoid air cells and paranasal sinuses are clear. IMPRESSION: No acute intracranial abnormality. Moderate generalized volume loss with chronic small vessel ischemic change. Unchanged appearance of subcentimeter left parietal calvarial lytic lesion. Stability suggests an int raosseous hemangioma versus treated disease.
--- NOTE | 2024-12-18 20:08 | DVH ---
CLINICAL INDICATION: fall injury TECHNIQUE: 2 radiographic views of the right wrist were obtained. Comparison: None FINDINGS/IMPRESSION: Displaced comminuted intra-articular fracture distal radius and a fracture of the styloid process of the ulna.
[2024-12-18 20:27] LABS: Total Iron Binding Capacity 296.0 ug/dL (250-425)
[2024-12-18 21:18] LABS: Iron 12.0 ug/dL (50-170)
--- NOTE | 2024-12-18 21:29 | DVH ---
History: fall injury with pain. Comparison Study: XY PELVIS AP on DOS: 12/18/24, PELVIS WO CONTRAST on DOS: 05/06/19, CT ABD PELVIS WO CONTRAST on DOS: 05/06/19 Technique: Multidetector spiral CT of the pelvis was performed from iliac crests to pubic symphysis. 100 cc of intravenous contrast was administered during this examination. Portal venous imaging was obtained. Axial, coronal and sagittal multiplanar reformats were performed by the technologist on a separate workstation. Radiation Dose : CT Dose: CTDI volume is 7.45 mGy. Dose-length product is 398.29 mGy*cm Findings: Visualized bowel: Large volume of stool within the rectum. Ascites: Absent Lymphadenopathy: No pelvic or mesenteric lymphadenopathy. Pelvis Wall and Mesentery: Unremarkable. Pelvic Organs: Unremarkable. Musculoskeletal: Comminuted fracture of the right sacral ala. Highly comminuted fractures of the righ t superior and inferior pubic rami extending into the pubic body. Inferior pubic ramus is displaced l aterally. Bladder: Gordon catheter in-situ. IMPRESSION: Comminuted fracture of the right sacral ala. Highly comminuted fractures of the right superior and inferior pubic rami extending into the pubic akil dy. Stool filled distention of the rectum.
[2024-12-18] MEDS: PANTOPRAZOLE 40mg/50ML NS AE 50 ML IV ONE (21:36)
[2024-12-18 23:05] VITALS: PULSE 90; RESP 22; O2SAT 97
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
[2024-12-18] MEDS: PIPERACILLIN-TAZOB 2.25GM 50 ML IV ONE (23:45)
[2024-12-18] MEDS ORDERED: VANCOMYCIN PER PHARMACY 0 MG IV SCH (23:45)
[2024-12-18] MEDS ORDERED: D5W 5% 1,000 ML IV SCH (23:45)
[2024-12-18] MEDS: VANCOMYCIN 1GM/250ML KIT 250 ML IV ONE (23:45)
[2024-12-18 23:52] LABS: Cholesterol 112.0 mg/dL (< 200)
[2024-12-18 23:57] LABS: Amphetamine Screen, Urine Neg (NEGATIVE); Barbiturate Scree,Urine Neg (NEGATIVE); Benzodiazephine Screen, Urine Neg (NEGATIVE); Cannabinoid Screen, Urine Neg (NEGATIVE); Cocaine Screen, Urine Neg (NEGATIVE); Opiate Scree,Urine Neg (NEGATIVE); Phencyclidine Screen, Urine Neg (NEGATIVE)
[2024-12-18 23:57] LABS: HDL Cholesterol 31.0 mg/dL (40-59); Triglycerides 150.0 mg/dL (< 150)
[2024-12-19] VITALS (12 sets, daily range): BP systolic 105–133; BP diastolic 41–113; PULSE 85–96; RESP 16–29; TEMP 98–99.3; O2SAT 90–100
[2024-12-19 00:03] LABS: Lipase 23.0 U/L (12-53)
[2024-12-19] MEDS ORDERED: ENOXAPARIN SOD 40 MG/0.4 ML SYRINGE SC SCH (00:15)
[2024-12-19] MEDS: D5W 5% 1,000 ML IV SCH (00:30)
[2024-12-19 01:04] LABS: Hematocrit 19.7 % (36.0-46.0)
[2024-12-19 01:08] LABS: INR 1.13 (0.9-1.15); Prothrombin Time 11.8 sec (9.3-11.8)
[2024-12-19 01:26] LABS: Hemoglobin 5.8 g/dL (12.2-16.2)
--- NOTE | 2024-12-19 03:26 | DVH ---
CHEST RADIOGRAPH Indication: S/P CENTRAL LINE PLACEMENT Technique: Single frontal view of the chest was obtained COMPARISON: XY CHEST PORTABLE on DOS: 12/18/24, XY CHEST TWO VIEWS ROUTINE on DOS: 11/01/24, XY CHEST PORTABLE on DOS: 01/31/24, XY CHEST PORTABLE on DOS: 05/24/22, CHEST TWO VIEWS ROUTINE on DOS: 1 FINDINGS: Lines and Tubes: Interval placement of right internal jugular central venous catheter with tip projec ting over the cavoatrial junction. Lungs: Clear Pleura: No effusion. No pneumothorax. Cardiomediastinal contours: Unremarkable Bones: Unremarkable IMPRESSION: 1. Interval placement of right internal jugular central venous catheter with tip projecting over the cavoatrial junction. 2. No acute cardiopulmonary process.
[2024-12-19] MEDS: PANTOPRAZOLE 40mg/50ML NS AE 50 ML IV SCH (03:42)
[2024-12-19] MEDS: MORPHINE SULFATE INJ 2 MG/ml SYRG IV SCH (06:00)
[2024-12-19] MEDS: PIPERACILLIN-TAZOB 3.375GM 100 ML IV SCH ×2 (06:16→23:37)
[2024-12-19 07:52] LABS: COVID19 ANTIGEN SOFIA FIA NEGATIVE (NEGATIVE)
[2024-12-19 08:28] LABS: Hematocrit 20.0 % (36.0-46.0); Mean Corpuscular Hemoglobin 21.1 pg (28.0-32.0); Mean Corpuscular Volume 74.6 fL (80.0-100.0); Nucleated Red Blood Cells % 1.6 %
[2024-12-19 08:39] LABS: Hemoglobin 5.7 g/dL (12.2-16.2)
[2024-12-19 08:54] LABS: Ferritin 36.3 ng/mL (10-291)
--- NOTE | 2024-12-19 08:57 | ECG ---
[facility] Test Date: 2024-12-18 Test Time: 17:43:16 Pat Name: JANNA HERNANDEZ Department: [facility] ED Room: [address] [place] [address] Gender: F Glass Curvature Gauger: jose : 1940 Requested By: EMERGENCY EMERGENCY Order Number: [id number] Reading MD: Cooper Cantu Measurements Intervals [place] Rate: 76 P: 66 VT: 125 QRS: -32 QRSD: 87 T: 257 QT: 456 QTc: 513 Interpretive Statements Sinus rhythm Multiple premature complexes, vent & supraven Left axis deviation Probable anterior infarct, age indeterminate Abnormal T, consider ischemia, diffuse leads Lateral leads are also involved Prolonged QT interval Electronically Signed On 12-19-2024 9:06:09 PDT by Cooper Cantu Please click the below link to view image of tracing.
[2024-12-19 08:58] LABS: Potassium 3.8 mmol/L (3.5-5.1)
[2024-12-19 08:59] LABS: Anion Gap 16 (5-15)
[2024-12-19 09:04] LABS: BUN/Creatinine Ratio 71.8 (10.0-20.0); Glucose 100 mg/dL (74-106)
[2024-12-19 09:05] LABS: Ovalocytes FEW
[2024-12-19 09:05] LABS: Blood Urea Nitrogen 61 mg/dL (9-23); Calcium 7.6 mg/dL (8.7-10.4); Carbon Dioxide 15 mmol/L (20-31); Chloride 123 mmol/L (98-107); Sodium 154 mmol/L (136-145)
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
[2024-12-19 13:36] LABS: Hematocrit 28.5 % (36.0-46.0); Hemoglobin 8.4 g/dL (12.2-16.2)
[2024-12-19 14:03] LABS: Potassium 3.7 mmol/L (3.5-5.1)
[2024-12-19 14:04] LABS: Anion Gap 14 (5-15)
[2024-12-19 14:09] LABS: BUN/Creatinine Ratio 61.6 (10.0-20.0); Blood Urea Nitrogen 53 mg/dL (9-23); Calcium 7.6 mg/dL (8.7-10.4); Carbon Dioxide 19 mmol/L (20-31); Chloride 122 mmol/L (98-107); Glucose 110 mg/dL (74-106); Sodium 155 mmol/L (136-145)
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
[2024-12-19] MEDS: HYDROmorphone HCL 2 MG/ML VL/or syr IV PRN (17:03)
--- NOTE | 2024-12-19 18:37 | DVH ---
CLINICAL INDICATION: POST REDUCTION TECHNIQUE: 2 radiographic views of the right wrist were obtained. Comparison: None FINDINGS/IMPRESSION: Improved bony alignment with decreased displacement.
--- NOTE | 2024-12-19 19:49 | DVHINCON2 ---
Consult Note Consult Consult Note Consulting Service: Emergency Medicine Consulted Service: Orthopedic Surgery Reason for Consult: Right wrist fracture and pelvic fractures after ground-level fall Subjective: Patient seen and evaluated in the Emergency Department after being brought in by neighbors. Per report, patient was found on the ground approximately three days after a ground-level fall. Patient is not coherent/AMS and unable to provide history. No family at bedside at the time of evaluation. History obtained from ER staff and chart review. Objective: General: Elderly female, awake but confused and mild combative during evaluation. Appears cachectic with frail, thin skin. Right Upper Extremity: Inspection: No open skin wound over the wrist. Small superficial abrasion noted over the lateral forearm.ecchymosis right wrist noted Palpation: Tenderness to palpation over the distal radius region. Neurovascular Exam: Gross neurovascularly intact distally. Capillary refill <2 seconds. Patient able to wiggle fingers. Sensation grossly intact. Skin: Very thin, fragile skin at high risk for breakdown with immobilization. Imaging: before reduction right distal radius Xray : Displaced comminuted intra-articular fracture distal radius and a fracture of the styloid process of the ulna. Procedure: Gentle traction performed after Lidocaine 1% w/o epi hematoma block, pt tolerated procedure well, but no further reduction achieved due to patient being combative and uncooperative. Immobilized in a short-arm splint for comfort and protection. After reduction right distal radius Xray: Improved bony alignment with decreased displacement. Pelvis / Lower Extremities: Imaging: X-ray and CT pelvis reviewed with Dr. Cedillo (on-call orthopedic surgeon). Comminuted fracture of the right sacral ala. Highly comminuted fractures of the right superior and inferior pubic rami extending into the pubic body. Inferior pubic ramus is displaced laterally with intact pelvic ring. Exam: No open wound or gross deformity. Pelvic compression stable. Patient able to move bilateral toes and ankles, indicating intact gross neurovascular status of lower extremities. Calf compartments soft and compressible. Assessment: 1. Right distal radius impacted fracture closed, mildly displaced impacted, unable to fully reduce due to patient non-compliance; splinted. 2. Right superior and inferior pubic rami fractures w/ comminuted fracture of right sacral ala pelvic ring intact. 3. Ground-level fall in elderly patient with altered mental status. Plan: 1. Right wrist: Treated with short-arm splint. Non-operative management at this time. Monitor for swelling or skin breakdown due to frail skin. Follow-up in orthopedic clinic in 710 days for re-evaluation and repeat X-ray. 2. Pelvic fractures: Non-operative management. Bed rest for pain control and initial stabilization. Gradual transition to walker-assisted ambulation as tolerated. 3. Pain control and DVT prophylaxis per hospitalist. 4. Monitor for complications increased pain, swelling, erythema, or neurovascular change. 5. Social work consult recommended for home safety and placement evaluation. 6. Discussed with Dr. Cedillo agrees with conservative management for both injuries. Orthopedic Impression: Elderly female with right distal radius fracture and superior/inferior pubic rami fractures after ground-level fall. Both injuries are non-operative. Patient remains grossly neurovascularly intact in all extremities. Continue conservative management and follow-up once medically stable. Plan discussed with: Other (bedside nurse) Visit Coding Surgery Date of Service if different f: Dec 19, 2024 Billing Provider: PONCHO ZAPATA Surgery Visit Codes: [id number] - INP CONSULT <55 MIN PONCHO ZAPATA Dec 19, 2024 19:49
[2024-12-19] MEDS: VANCOMYCIN 750MG KIT 100 ML IV SCH (22:14)
[2024-12-20] VITALS (11 sets, daily range): BP systolic 99–112; BP diastolic 42–60; PULSE 81–91; RESP 15–22; TEMP 98–98.7; O2SAT 98–100
[2024-12-20 05:23] LABS: Hematocrit 26.6 % (36.0-46.0); Hemoglobin 8.2 g/dL (12.2-16.2); Mean Corpuscular Hemoglobin 23.4 pg (28.0-32.0); Mean Corpuscular Volume 76.3 fL (80.0-100.0); Nucleated Red Blood Cells % 0.5 %
[2024-12-20 05:35] LABS: Alkaline Phosphatase 75 U/L (46-116); Anion Gap 10 (5-15); BUN/Creatinine Ratio 44.9 (10.0-20.0); Carbon Dioxide 23 mmol/L (20-31); Potassium 3.7 mmol/L (3.5-5.1)
[2024-12-20 05:36] LABS: Bilirubin, Total 0.9 mg/dL (0.2-1.0)
[2024-12-20 05:37] LABS: Alanine Aminotransferase 48 U/L (7-40); Albumin 2.9 g/dL (3.2-4.8); Blood Urea Nitrogen 40 mg/dL (9-23); Calcium 7.8 mg/dL (8.7-10.4); Chloride 122 mmol/L (98-107); Glucose 114 mg/dL (74-106); Sodium 155 mmol/L (136-145); Total Protein 4.8 g/dL (5.7-8.2)
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
[2024-12-20] MEDS ORDERED: CLINIMIX PER PHARMACY 0 ML IV SCH (11:00)
[2024-12-20] MEDS ORDERED: ALBUTEROL SULF 2.5 MG/0.5ML(0.5%) NEB SOLN NEB PRN (11:00)
[2024-12-20] MEDS: FLEET ENEMA(ADULT) 135 ML PR ONE ×2 (11:04→12:54)
[2024-12-20 11:59] LABS: Magnesium 2.6 mg/dL (1.6-2.6)
[2024-12-20] MEDS ORDERED: Ensure HIGH Protein Chocolate 8oz Bottle PO SCH (12:00)
[2024-12-20] MEDS: CALCIUM GLUC 1,000mg/50ml-NS 50 ML IV ONE (12:54)
--- NOTE | 2024-12-20 14:37 | DVHPN2 ---
Subjective No changes Reviewed: H&P Changes from previous H/P or p: No Changes General: Per HPI Objective Vitals Vital Signs Date Time Temp Pulse Resp B/P (MAP) Pulse Ox O2 Delivery O2 Flow Rate FiO2 12/20/24 13:00 98.2 86 19 106/46 (66) 99 98.2 12/20/24 12:50 Nasal Cannula 3.0 12/20/24 12:50 32 Intake/Output Intake and Output 12/20/24 07:00 Intake Total 790 ml Output Total 1525 ml Balance -735 ml Intake Oral 0 ml IV Total 790 ml Output Urine Total 1525 ml # Bowel Movements 1 Exam General: Patient is awake Chest: lung delgado clear to auscultation Heart: RRR, no murmur Abdomen: non-distended, no tenderness to palpation, +BS Medications Current Medications Medications Dose Ordered Sig/Tray Route Start Time Stop Time Status Last Admin Dose Admin Vancomycin HCl 0 ml @ 0 mls/hr UD IV 12/18/24 23:45 Dextrose 1,000 ml @ 60 mls/hr [id number] IV 12/19/24 00:30 12/20/24 09:58 60 MLS/HR Vancomycin HCl 100 ml @ 100 mls/hr Q24H IV 12/19/24 22:00 12/19/24 22:14 100 MLS/HR Piperacillin Sod/ Tazobactam Sod 100 ml @ 25 mls/hr Q8H IV 12/19/24 23:00 12/20/24 07:04 25 MLS/HR Mirtazapine 15 mg HS PO 12/20/24 22:00 Albuterol 2.5 mg Q4HPRN PRN NEB 12/20/24 11:00 Amino Acids 0 ml @ 0 mls/hr PER PHARMACY IV 12/20/24 11:00 Amino Acids/ Electrolytes/ Dextrose 1,000 ml @ 41 mls/hr DAILY@2200 IV 12/20/24 22:00 Diagnostic Test (Pha) 1 strip Q6HR 12/21/24 00:00 Insulin Human Regular FOLLOW SLIDING SCALE Q6HR SC 12/21/24 00:00 Dextrose 50 ml UD IV 12/20/24 22:00 Pantoprazole Sodium 40 mg BID IV 12/20/24 22:00 Ketorolac Tromethamine 15 mg Q6HPRN PRN IV 12/20/24 14:15 12/25/24 14:14 Hydromorphone HCl 0.25 mg Q4HPRN PRN IV 12/20/24 14:15 Laboratory Results Laboratory Tests 12/20/24 04:34 Chemistry Test 12/20/24 04:34 Albumin 2.9 g/dL (3.2-4.8) L Calcium Level 7.8 mg/dL (8.7-10.4) L Magnesium Level 2.6 mg/dL (1.6-2.6) Phosphorus Level 3.4 mg/dL (2.4-5.1) Total Protein 4.8 g/dL (5.7-8.2) L LFT Test 12/20/24 04:34 Alanine Aminotransferase (ALT) 48 U/L (7-40) H Alkaline Phosphatase 75 U/L (46-116) Aspartate Amino Transferase (AST) 24 U/L (13-40) Total Bilirubin 0.9 mg/dL (0.2-1.0) Urinalysis Test 12/18/24 18:48 Urine Color Yellow (Yellow) Urine Clarity Clear (Clear) Urine pH 5.5 (5.0-9.0) Urine Specific [place] 1.025 (1.001-1.035) Urine Protein Negative (Negative) Urine Ketones 1+ (Negative) H Urine Blood Negative /uL (Negative) Urine Nitrite Negative (Negative) Urine Bilirubin Negative (Negative) Urine Urobilinogen Normal mg/dL (Negative) Urine Leukocyte Esterase Negative /uL (Negative) Urine RBC <1 /hpf (0 - 4) Urine Microscopic WBC 1 /HPF (0-5) Urine Squamous Epithelial Cells Few /hpf (<5) Urine Bacteria None seen /hpf (None Seen) Urine Mucus Few (None Seen) Urine Glucose Normal mg/dL (Normal) Microbiology Microbiology Date/Time Source Procedure Growth Status 12/18/24 19:09 Blood Blood Culture - Preliminary NO GROWTH AFTER 24 HOURS OF INCUBATION. Resulted Assessment/Plan Assessment/Plan Metabolic encephalopathy Possible GI bleed Severe anemia Sepsis Possible aspiration pneumonia Pressure ulcers multiple sites Multiple fractures Plan: Discussed with Dr. Karimi Swallow evaluation pending NPO Clinimix Conservative management recommended at this time We will continue to monitor. Plan discussed with: Other (RN) Date of Service: Dec 20, 2024 Billing Provider: PAMELA MEAD Common Visit Codes: [id number] INP/OBS CARE(HIGH) PMAELA MEAD Dec 20, 2024 14:37
[2024-12-20] MEDS: HYDROmorphone HCL 2 MG/ML VL/or syr IV PRN (14:43)
[2024-12-20] MEDS: PANTOPRAZOLE 40 MG/10 ML VIAL INJ IV SCH (21:19)
[2024-12-20] MEDS: MIRTAZAPINE 30 MG TAB PO SCH (21:20)
[2024-12-20] MEDS ORDERED: DEXTROSE (50%) 50ML SYRG IV SCH (22:00)
[2024-12-20] MEDS: AMINO ACID INFUSION IN D10W 1,000 ML IV SCH (23:54)
[2024-12-21] VITALS (10 sets, daily range): BP systolic 96–108; BP diastolic 44–64; PULSE 70–81; RESP 16–18; TEMP 97.7–99.5; O2SAT 99–100
[2024-12-21] MEDS: InsuLIN REG 1unit/0.01ml Soln (100units/ml) SC SCH
[2024-12-21] MEDS: ACCU-CHEK COMFORT CURVE STRIP VI SCH (00:13)
[2024-12-21] MEDS: KETOROLAC TROMETH 30 MG/ML 1ML VIAL IV PRN (03:24)
[2024-12-21 04:04] LABS: Mean Corpuscular Hemoglobin 23.7 pg (28.0-32.0); Nucleated Red Blood Cells % 0.3 %
[2024-12-21 04:06] LABS: Hematocrit 26.6 % (36.0-46.0); Hemoglobin 8.0 g/dL (12.2-16.2); Mean Corpuscular Volume 78.4 fL (80.0-100.0)
[2024-12-21 04:20] LABS: Alanine Aminotransferase 36 U/L (7-40); Alkaline Phosphatase 72 U/L (46-116); Anion Gap 12 (5-15); BUN/Creatinine Ratio 34.4 (10.0-20.0); Carbon Dioxide 22 mmol/L (20-31); Magnesium 2.3 mg/dL (1.6-2.6)
[2024-12-21 04:21] LABS: Bilirubin, Total 0.8 mg/dL (0.2-1.0)
[2024-12-21 04:35] LABS: Albumin 2.8 g/dL (3.2-4.8); Blood Urea Nitrogen 33 mg/dL (9-23); Calcium 7.6 mg/dL (8.7-10.4); Chloride 118 mmol/L (98-107); Glucose 130 mg/dL (74-106); Potassium 3.0 mmol/L (3.5-5.1); Sodium 152 mmol/L (136-145); Total Protein 4.7 g/dL (5.7-8.2)
[2024-12-21] MEDS: POTASSIUM CHL 20MEQ/100ML 100 ML IV ONE (10:21)
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
--- NOTE | 2024-12-21 12:07 | DVHPN2 ---
Subjective No changes Reviewed: H&P Changes from previous H/P or p: No Changes General: Per HPI Objective Vitals Vital Signs Date Time Temp Pulse Resp B/P (MAP) Pulse Ox O2 Delivery O2 Flow Rate FiO2 12/21/24 08:30 76 17 100 Nasal Cannula* 3 32 12/21/24 05:00 97.7 97/44 (61) 97.7 Intake/Output Intake and Output 12/21/24 07:00 Intake Total 60 ml Output Total 650 ml Balance -590 ml Intake Oral 60 ml Output Urine Total 650 ml # Bowel Movements 7 Exam General: Patient is awake Chest: lung delgado clear to auscultation Heart: RRR, no murmur Abdomen: non-distended, no tenderness to palpation, +BS Medications Current Medications Medications Dose Ordered Sig/Tray Route Start Time Stop Time Status Last Admin Dose Admin Vancomycin HCl 0 ml @ 0 mls/hr UD IV 12/18/24 23:45 Dextrose 1,000 ml @ 60 mls/hr [id number] IV 12/19/24 00:30 12/21/24 02:24 60 MLS/HR Vancomycin HCl 100 ml @ 100 mls/hr Q24H IV 12/19/24 22:00 12/20/24 21:19 100 MLS/HR Piperacillin Sod/ Tazobactam Sod 100 ml @ 25 mls/hr Q8H IV 12/19/24 23:00 12/21/24 06:04 25 MLS/HR Mirtazapine 15 mg HS PO 12/20/24 22:00 12/20/24 21:20 15 MG Albuterol 2.5 mg Q4HPRN PRN NEB 12/20/24 11:00 Amino Acids 0 ml @ 0 mls/hr PER PHARMACY IV 12/20/24 11:00 Amino Acids/ Electrolytes/ Dextrose 1,000 ml @ 41 mls/hr DAILY@2200 IV 12/20/24 22:00 12/20/24 23:54 41 MLS/HR Diagnostic Test (Pha) 1 strip Q6HR 12/21/24 00:00 12/21/24 06:08 1 STRIP Insulin Human Regular FOLLOW SLIDING SCALE Q6HR SC 12/21/24 00:00 12/21/24 06:11 2 UNITS Dextrose 50 ml UD IV 12/20/24 22:00 Pantoprazole Sodium 40 mg BID IV 12/20/24 22:00 12/21/24 10:06 40 MG Ketorolac Tromethamine 15 mg Q6HPRN PRN IV 12/20/24 14:15 12/25/24 14:14 12/21/24 03:24 15 MG Hydromorphone HCl 0.25 mg Q4HPRN PRN IV 12/20/24 14:15 12/20/24 14:43 0.25 MG Laboratory Results Laboratory Tests 12/21/24 03:46 Chemistry Test 12/21/24 03:46 Albumin 2.8 g/dL (3.2-4.8) L Calcium Level 7.6 mg/dL (8.7-10.4) L Magnesium Level 2.3 mg/dL (1.6-2.6) Phosphorus Level 2.6 mg/dL (2.4-5.1) Total Protein 4.7 g/dL (5.7-8.2) L LFT Test 12/21/24 03:46 Alanine Aminotransferase (ALT) 36 U/L (7-40) Alkaline Phosphatase 72 U/L (46-116) Aspartate Amino Transferase (AST) 21 U/L (13-40) Total Bilirubin 0.8 mg/dL (0.2-1.0) Urinalysis Test 12/18/24 18:48 Urine Color Yellow (Yellow) Urine Clarity Clear (Clear) Urine pH 5.5 (5.0-9.0) Urine Specific [place] 1.025 (1.001-1.035) Urine Protein Negative (Negative) Urine Ketones 1+ (Negative) H Urine Blood Negative /uL (Negative) Urine Nitrite Negative (Negative) Urine Bilirubin Negative (Negative) Urine Urobilinogen Normal mg/dL (Negative) Urine Leukocyte Esterase Negative /uL (Negative) Urine RBC <1 /hpf (0 - 4) Urine Microscopic WBC 1 /HPF (0-5) Urine Squamous Epithelial Cells Few /hpf (<5) Urine Bacteria None seen /hpf (None Seen) Urine Mucus Few (None Seen) Urine Glucose Normal mg/dL (Normal) Microbiology Microbiology Date/Time Source Procedure Growth Status 12/18/24 19:09 Blood Blood Culture - Preliminary NO GROWTH AFTER 48 HOURS OF INCUBATION. Resulted Assessment/Plan Assessment/Plan Metabolic encephalopathy Possible GI bleed Severe anemia Sepsis Possible aspiration pneumonia Pressure ulcers multiple sites Multiple fractures Plan: Discussed with Dr. Karimi Swallow evaluation pending NPO Clinimix Conservative management recommended at this time We will continue to monitor. Plan discussed with: Other (Dr. Chaudhry hospitalist) Date of Service: Dec 21, 2024 Billing Provider: PAMELA MEAD Common Visit Codes: [id number] INP/OBS CARE(HIGH) PAMELA MEAD Dec 21, 2024 12:07
[2024-12-21] MEDS: POTASSIUM PHOSPHATE 11 MEQ in SODIUM CHL 0.9% 100 ML IV ONE (12:30)
[2024-12-21] MEDS: D5W 5% 1,000 ML IV SCH (16:12)
[2024-12-21 19:02] LABS: Alanine Aminotransferase 31 U/L (7-40); Alkaline Phosphatase 70 U/L (46-116); Anion Gap 11 (5-15); BUN/Creatinine Ratio 31.6 (10.0-20.0); Bilirubin, Total 0.6 mg/dL (0.2-1.0); Carbon Dioxide 20 mmol/L (20-31)
[2024-12-21 19:20] LABS: Albumin 2.7 g/dL (3.2-4.8); Blood Urea Nitrogen 30 mg/dL (9-23); Calcium 7.4 mg/dL (8.7-10.4); Chloride 117 mmol/L (98-107); Glucose 138 mg/dL (74-106); Potassium 3.4 mmol/L (3.5-5.1); Sodium 148 mmol/L (136-145); Total Protein 4.7 g/dL (5.7-8.2)
[2024-12-22] VITALS (11 sets, daily range): BP systolic 103–135; BP diastolic 49–84; PULSE 75–89; RESP 16–20; TEMP 98–98.7; O2SAT 96–100
[2024-12-22 05:59] LABS: Anion Gap 12.0 (5-15)
[2024-12-22 06:04] LABS: BUN/Creatinine Ratio 35.9 (10.0-20.0); Magnesium 2.1 mg/dL (1.6-2.6)
[2024-12-22 06:16] LABS: Albumin 2.7 g/dL (3.2-4.8); Blood Urea Nitrogen 28.0 mg/dL (9-23); Calcium 7.5 mg/dL (8.7-10.4); Carbon Dioxide 19.0 mmol/L (20-31); Chloride 112.0 mmol/L (98-107); Glucose 119.0 mg/dL (74-106); Potassium 3.1 mmol/L (3.5-5.1); Sodium 143.0 mmol/L (136-145)
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
[2024-12-22] MEDS: POTASSIUM CHL 20MEQ/100ML 100 ML IV ONE (13:10)
[2024-12-22] MEDS: LACTATED RINGER'S 1,000 ML IV SCH (13:28)
[2024-12-22] MEDS: VANCOMYCIN 500mg/100mL 100 ML IV SCH (16:39)
[2024-12-22] MEDS: POTASSIUM PHOSPHATE 22 MEQ in SODIUM CHL 0.9% 100 ML IV ONE (16:48)
[2024-12-23] VITALS (11 sets, daily range): BP systolic 118–133; BP diastolic 59–78; PULSE 77–87; RESP 16–18; TEMP 97.6–98.1; O2SAT 96–100
--- NOTE | 2024-12-23 01:23 | DVH ---
Right lower extremity venous duplex Clinical History: R/O DVT Comparison: None Technique: Duplex Doppler evaluation of the deep venous system of the right lower extremity from the common femo ral vein to the popliteal vein including color Doppler and spectral/pulsed waveform analysis was perf ormed. Findings: The common femoral vein demonstrates appropriate compressibility and waveform variability. There is compressibility/patency of the great saphenous vein at the proximal thigh. The femoral vein demonstrates appropriate compressibility and waveform variability. The deep femoral vein demonstrates appropriate compressibility and waveform variability. The popliteal vein demonstrates appropriate compressibility and waveform variability. There is normal compressibility at the tibioperoneal trunk. Impression: No right femoropopliteal venous thrombosis.
[2024-12-23 05:03] LABS: Hemoglobin 7.9 g/dL (12.2-16.2)
[2024-12-23 05:06] LABS: Hematocrit 25.1 % (36.0-46.0); Mean Corpuscular Hemoglobin 23.7 pg (28.0-32.0); Mean Corpuscular Volume 75.4 fL (80.0-100.0); Nucleated Red Blood Cells % 0.1 %
[2024-12-23 05:46] LABS: Alanine Aminotransferase 25 U/L (7-40); Alkaline Phosphatase 82 U/L (46-116); Anion Gap 9 (5-15); BUN/Creatinine Ratio 33.8 (10.0-20.0); Bilirubin, Total 0.6 mg/dL (0.2-1.0); Blood Urea Nitrogen 22 mg/dL (9-23); Carbon Dioxide 20 mmol/L (20-31); Magnesium 2.0 mg/dL (1.6-2.6); Sodium 143 mmol/L (136-145)
[2024-12-23 05:55] LABS: Albumin 2.7 g/dL (3.2-4.8); Calcium 7.7 mg/dL (8.7-10.4); Chloride 114 mmol/L (98-107); Glucose 125 mg/dL (74-106); Potassium 3.2 mmol/L (3.5-5.1); Total Protein 4.6 g/dL (5.7-8.2)
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
[2024-12-23] MEDS: POTASSIUM PHOSPHATE 26.4 MEQ in SODIUM CHL 0.9% 100 ML IV ONE (16:27)
[2024-12-24] VITALS (7 sets, daily range): BP systolic 111–134; BP diastolic 59–76; PULSE 72–84; RESP 16–20; TEMP 97.7–98.4; O2SAT 98–100
[2024-12-24 06:18] LABS: Hemoglobin 8.9 g/dL (12.2-16.2); Mean Corpuscular Hemoglobin 23.4 pg (28.0-32.0)
[2024-12-24 06:21] LABS: Hematocrit 29.2 % (36.0-46.0); Mean Corpuscular Volume 77.1 fL (80.0-100.0); Nucleated Red Blood Cells % 0.2 %
[2024-12-24 06:28] LABS: Alanine Aminotransferase 24 U/L (7-40); Albumin 2.8 g/dL (3.2-4.8); Alkaline Phosphatase 100 U/L (46-116); Anion Gap 11 (5-15); BUN/Creatinine Ratio 25.8 (10.0-20.0); Bilirubin, Total 0.7 mg/dL (0.2-1.0); Blood Urea Nitrogen 17 mg/dL (9-23); Calcium 8.0 mg/dL (8.7-10.4); Carbon Dioxide 21 mmol/L (20-31); Chloride 111 mmol/L (98-107); Glucose 119 mg/dL (74-106); Magnesium 1.8 mg/dL (1.6-2.6); Potassium 3.2 mmol/L (3.5-5.1); Sodium 143 mmol/L (136-145); Total Protein 5.0 g/dL (5.7-8.2)
[2024-12-24] MEDS ORDERED: HALOPERIDOL LACTATE 5 MG/ML INJ VIAL IM PRN (11:30)
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
[2024-12-24] MEDS: POTASSIUM PHOSPHATE 26.4 MEQ in SODIUM CHL 0.9% 100 ML IV ONE (15:29)
--- NOTE | 2024-12-24 15:46 | DVHPN2 ---
Progress Note Date Seen: Dec 24, 2024 Resident Creating Document: ZAIN JAIMES RESIDENT Medical Necessity Reason Pt with a Central, PICC or Fol: Yes The following are medically ne: Central Line, Gordon Catheter Subjective Review of Systems Patient seen and examined at the bedside Alert and oriented x1 Does not report of any abdominal pain Patient was recommended conservative management and against any endoscopic procedure given the frailty and medical condition Objective vital signs Vital Sign Date Time Temp Pulse Resp B/P (MAP) Pulse Ox O2 Delivery O2 Flow Rate FiO2 12/24/24 13:00 98.0 73 20 111/60 (77) 98 98.0 12/23/24 20:00 Nasal Cannula* 3 32 Total Intake and Output 12/23/24 12/23/24 12/24/24 15:00 23:00 07:00 Intake Total 335 ml 871 ml 200 ml Output Total 700 ml 750 ml Balance 335 ml 171 ml -550 ml medications Current Medications Medications Dose Ordered Sig/Tray Route Start Time Stop Time Status Last Admin Dose Admin Vancomycin HCl 0 ml @ 0 mls/hr UD IV 12/18/24 23:45 Piperacillin Sod/ Tazobactam Sod 100 ml @ 25 mls/hr Q8H IV 12/19/24 23:00 12/24/24 06:33 25 MLS/HR Mirtazapine 15 mg HS PO 12/20/24 22:00 12/21/24 21:22 15 MG Albuterol 2.5 mg Q4HPRN PRN NEB 12/20/24 11:00 Amino Acids 0 ml @ 0 mls/hr PER PHARMACY IV 12/20/24 11:00 Amino Acids/ Electrolytes/ Dextrose 1,000 ml @ 41 mls/hr DAILY@2200 IV 12/20/24 22:00 12/23/24 22:00 41 MLS/HR Diagnostic Test (Pha) 1 strip Q6HR 12/21/24 00:00 12/24/24 11:58 1 STRIP Insulin Human Regular FOLLOW SLIDING SCALE Q6HR SC 12/21/24 00:00 12/23/24 12:46 2 UNITS Dextrose 50 ml UD IV 12/20/24 22:00 Pantoprazole Sodium 40 mg BID IV 12/20/24 22:00 12/24/24 09:45 40 MG Ketorolac Tromethamine 15 mg Q6HPRN PRN IV 12/20/24 14:15 12/25/24 14:14 12/24/24 09:45 15 MG Hydromorphone HCl 0.25 mg Q4HPRN PRN IV 12/20/24 14:15 12/24/24 03:49 0.25 MG Lactated Ringer's 1,000 ml @ 50 mls/hr Q20H IV 12/22/24 12:00 12/24/24 04:00 50 MLS/HR Vancomycin HCl 100 ml @ 100 mls/hr Q12H IV 12/22/24 13:30 12/24/24 13:30 100 MLS/HR Haloperidol Lactate 2.5 mg Q6HPRN PRN IM 12/24/24 11:30 Examination Gen - mild conjunctival pallor, no scleral icterus Skin - Patients skin is warm and dry. HEENT - normocephalic, atraumatic, dry mucous membranes. Neck - supple, no lymphadenopathy Pulmonary - B/L equal breath sounds without any crackles or wheezing cardiovascular - regular S1,S2 heard GI - soft abdomen without any tenderness to palpation. Bowel sounds normoactive. Neurological - patient is alert and oriented x1, does not follow all the commands laboratory and microbiology Laboratory Tests 12/24/24 04:48 Test 12/24/24 04:48 Range/Units Serum Glucose 119 H 74-106 mg/dL Microbiology Date/Time Source Procedure Growth Status 12/20/24 11:25 Stool Stool Culture - Final Complete 12/20/24 11:25 Stool Shiga Toxin I & II - Final Complete 12/20/24 11:25 Stool Clostridium difficile Toxin Assay - Final Complete 12/19/24 11:30 Sacrum Gram Stain - Final Resulted 12/19/24 11:30 Sacrum Wound Culture - Preliminary Resulted 12/18/24 19:09 Blood Blood Culture - Final NO GROWTH AFTER 5 DAYS OF INCUBATION. Complete Problem List/Assessment/Plan Problem List/Assessment/Plan Assessment GI bleed likely upper GI Severe anemia status post PRBC transfusion Metabolic encephalopathy Possible aspiration pneumonia Pressure ulcers bound multiple sides Multiple fractures Plan - H&H stable - conservative management as of now, we advised against any endoscopic procedure given the patient's medical condition - patient failed swallow evaluation, kept NPO and on Clinimix - will be discharged to SNF as per the primary team - continue Protonix 40 IV b.i.d. rest of the management as per the primary team Plan discussed with Dr. Karimi Plan discussed with: Other (SUSAN Saeed) Dietary Evaluation Review Comments: Nutrition Recommendation 1) Advance diet as medically feasible 2) Geoff 1 pk BID, MVI w/ minerals 1 tab daily, VitC 500mg BID, Zinc sulfate 220mg BID x 10 days 3) Monitor NPO status, lab values, weight trend, and I/O Expected Outcomes/Goals: Wound to improve Lab values to improve Fu 2-3 days CC Plasma Assessment Blood Product Administration S: [id number] ZAIN JAIMES RESIDENT Dec 24, 2024 15:46
== END 2024-12-24 17:00 | DRG 871 ==
LOC: EDBD 17:36 → ER 17:36 → OVERFLOW 12-19 00:03 → TELE-EAST 12-19 18:47
PROVIDERS: ADMIT Student in an Organized Health Care Education/Training Program; ATTEND Student in an Organized Health Care Education/Training Program
PROC: 30233N1 Transfusion of Nonautologous Red Blood Cells into Peripheral Vein, Percutaneous Approach (ICD-10-PCS; principal; 2024-12-19)
DX: A41.50 Gram-negative sepsis, unspecified (principal); E43 Unspecified severe protein-calorie malnutrition; G93.41 Metabolic encephalopathy; J15.69 Pneumonia due to other Gram-negative bacteria; J69.0 Pneumonitis due to inhalation of food and vomit; J15.9 Unspecified bacterial pneumonia; S32.511A Fracture of superior rim of right pubis, initial encounter for closed fracture; K92.2 Gastrointestinal hemorrhage, unspecified; E87.0 Hyperosmolality and hypernatremia; S32.119A Unspecified Zone I fracture of sacrum, initial encounter for closed fracture; S52.571A Other intraarticular fracture of lower end of right radius, initial encounter for closed fracture; F05 Delirium due to known physiological condition; D62 Acute posthemorrhagic anemia; N18.31 Chronic kidney disease, stage 3a; J43.9 Emphysema, unspecified; E86.0 Dehydration; E83.42 Hypomagnesemia; D50.9 Iron deficiency anemia, unspecified; S50.11XA Contusion of right forearm, initial encounter; F02.80 Dementia in other diseases classified elsewhere, unspecified severity, without behavioral disturbance, psychotic disturbance, mood disturbance, and anxiety; G30.9 Alzheimer's disease, unspecified; L89.110 Pressure ulcer of right upper back, unstageable; L89.310 Pressure ulcer of right buttock, unstageable; L89.610 Pressure ulcer of right heel, unstageable; W18.39XA Other fall on same level, initial encounter; I12.9 Hypertensive chronic kidney disease with stage 1 through stage 4 chronic kidney disease, or unspecified chronic kidney disease; R62.7 Adult failure to thrive; R13.10 Dysphagia, unspecified; R26.81 Unsteadiness on feet; Z90.710 Acquired absence of both cervix and uterus; Z86.73 Personal history of transient ischemic attack (TIA), and cerebral infarction without residual deficits; Z88.1 Allergy status to other antibiotic agents; Z91.013 Allergy to seafood; Z91.048 Other nonmedicinal substance allergy status; Y93.89 Activity, other specified; Y92.89 Other specified places as the place of occurrence of the external cause; Y99.8 Other external cause status; Z91.199 Patient's noncompliance with other medical treatment and regimen due to unspecified reason; Z68.25 Body mass index [BMI] 25.0-25.9, adult; L89.212 Pressure ulcer of right hip, stage 2
CPT/HCPCS: 36415; 70450; 71045; 72170; 72192; 73090; 73100; 73120; 80048; 80053; 80061; 80069; 80202; 80307; 81001; 82270; 82306; 82550; 82607; 82728; 82746; 82962; 83010; 83036; 83540; 83550; 83605; 83615; 83690; 83735; 84100; 85014; 85018; 85025; 85045; 85049; 85610; 85730; 86141; 86850; 86900; 86901; 86920; 87040; 87045; 87077; 87081; 87186; 87205; 87426; 87427; 87493; 87804; 92610; 93005; 93971; 94640; 96365; 97110; 97530; 99291; G0378; J1815; J1885; J2470; J2543; J3480

== ENCOUNTER 2025-02-13 18:33 | Inpatient (IN) | payer OTHER, MEDICAID ==
[~2025-02-13] VITALS: Ht 154.9 cm; Wt 51.4 kg
--- NOTE | 2025-02-13 19:17 | ED.PDOC ---
History of Present Illness HPI Comments 84 y/o frail F is BIBA from private residence for c/c of ALOC x3 hours. Per EMS personnel report, patient was found altered by visiting home RN and friends, this evening. Normally, patient is able to communicate and hold conversation at baseline and is, now, only responds to her name. Patient also commented to have a fever with an at-home temperature of 100.1F. On scene, patient was A7Ox1, follows commands, and had odorous urine smell. Vitals were stable and within normal limits, with exception of being tachycardic and decreased cap nod value of 28. Additional pertinent history of patient being bed-bound and having an current hip wound following a recent mechanical fall she sustained 1x month ago. No additional associated symptoms reported. Further history is limited, due to patient being altered and absence of family/hose cementer historians at bedside. Chief Complaint: ALOC Time Seen by MD: 18:55 Primary Care Provider: ABILIO Reviewed Notes: Nurses Notes, Research Engineer Notes, Medications, Allergies Allergies: Coded Allergies: Fish Allergy (Verified Allergy, Severe, 07/10/18) Tetracycline (Verified Allergy, Unknown, 07/05/18) Uncoded Allergies: TAPE (Allergy, Unknown, 07/05/18) Home Meds Active Scripts Ibuprofen Micronized (Ibuprofen) 600 Mg Tab, 600 MG PO Q6HPRN PRN for 5 Days, # 20 TAB Prov:JEN RANGEL MACHINE BINDING FOLDER 04/09/23 Ibuprofen Micronized (Ibuprofen) 600 Mg Tab, 600 MG PO Q6HPRN PRN for 5 Days, #20 TAB Prov:JEN RANGEL MACHINE BINDING FOLDER 04/09/23 Reported Medications Alendronate Sodium (ALENDRONATE SODIUM) 70 Mg/75 Ml Karolina, 70 MG OR QWEEKLY 07/05/18 Information Source: Emergency Med Personnel Mode of Arrival: EMS Severity: Moderate Timing: Hours Duration: Since onset Prehospital treatment: 12 Lead EKG, Accucheck, Safety Instruction Police Officer Past Medical History PAST MEDICAL HISTORY: Alzheimer, Dementia, HTN Surgical History: Hysterectomy 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 ADMINISTRATOR History: Unobtainable Family History Family History: Unobtainable Social History Smoker: Non-Smoker Alcohol: Denies ETOH Use Drugs: Denies Drug Use Lives In: Home Unable to Obtain due to: Altered Mental Status All Other Systems: Deferred Physical Exam Exam Comments not answering questions General Appearance: No Apparent Distress, Normal, Other (elderly, frail) HEENT: Normal ENT Inspection, Pharynx Normal, TMs Normal Neck: Full Range of Motion, Non-Tender, Normal, Normal Inspection Respiratory: Chest Non-Tender, Lungs Clear, No Accessory Muscle Use, No Re spiratory Distress, Normal Breath Sounds Cardiovascular: No Edema, No JVD, No Murmur, No Gallop, Normal Peripheral Pulses, Regular Rate/Rhythm Breast Exam: Deferred Gastrointestinal: No Organomegaly, Non Tender, No Pulsatile Mass, Normal Bowel Sounds, Soft Genitalia: Deferred Pelvic: Deferred Rectal: Deferred Extremities: No calf tenderness, Normal capillary refill, Normal inspection, Normal range of motion, Non-tender, No pedal edema Musculoskeletal : Apperance: Normal Neurologic: Alert, nanoscience technician II-XII nml as Tested, No Motor Deficits, No Sensory Deficits Cerebellar Function: Normal Reflexes: Normal Skin: Dry, Normal Color, Warm Lymphatic: No Adenopathy Was a procedure done? Was a procedure done?: No Differential Dx Considerations may include: encephalopathy, UTI, URI, viral syndrome, electrolyte imbalance, dehydration, among others X-Ray, Labs, Meds, VS Vital Signs Date Time Temp Pulse Resp B/P (MAP) Pulse Ox O2 Delivery O2 Flow Rate FiO2 02/13/25 19:40 99.4 11 20 107/54 (71) 97 99.4 02/13/25 18:38 98.9 115 96 111/56 96 98.9 Lab Test 02/13/25 20:24 02/13/25 19:25 Range/Units Troponin I High Sensitivity 9 10 </=34 ng/L White Blood Count 10.9 H 4.4-10.8 10^3/uL Red Blood Count 3.27 L 4.0-5.20 10^6/uL Hemoglobin 6.7 *L 12.2-16.2 g/dL Hematocrit 21.4 L 36.0-46.0 % Mean Corpuscular Volume 65.6 L 80.0-100.0 fL Mean Corpuscular Hemoglobin 20.5 L 28.0-32.0 pg Mean Corpuscular Hemoglobin Concent 31.2 L 32.0-36.0 g/dL Red Cell Distribution Width 18.2 H 11.8-14.3 % Platelet Count 646 H 140-450 10^3/uL Mean Platelet Volume 6.2 L 6.9-10.8 fL Neutrophils (%) (Auto) 72.4 37.0-80.0 % Lymphocytes (%) (Auto) 16.5 10.0-50.0 % Monocytes (%) (Auto) 10.2 0.0-12.0 % Eosinophils (%) (Auto) 0.1 0.0-7.0 % Basophils (%) (Auto) 0.8 0.0-2.0 % Neutrophils # (Auto) 7.8 1.6-8.6 10 ^3/uL Lymphocytes # (Auto) 1.8 0.4-5.4 10 ^3/uL Monocytes # (Auto) 1.1 0-1.3 10 ^3/uL Eosinophils # (Auto) 0 0-0.8 10 ^3/uL Basophils # (Auto) 0.1 0-0.2 10 ^3/uL Nucleated Red Blood Cells 0.0 % Platelet Estimate Increased Hypochromasia (manual) Marked Poikilocytosis (manual) Moderate Anisocytosis (manual) Slight Microcytosis Marked Prothrombin Time 11.0 9.3-11.8 sec Prothrombin Time INR 1.04 0.9-1.15 Activated Partial Thromboplast Time 30.7 24.5-34.5 SEC Sodium Level 138 136-145 mmol/L Potassium Level 4.2 3.5-5.1 mmol/L Chloride Level 105 98-107 mmol/L Carbon Dioxide Level 25 20-31 mmol/L Anion Gap 8 5-15 Blood Urea Nitrogen 16 9-23 mg/dL Creatinine 0.57 0.550-1.02 mg/dL Glomerular Filtration Rate Calc 89 >90 mL/min BUN/Creatinine Ratio 28.1 H 10.0-20.0 Serum Glucose 90 74-106 mg/dL Calcium Level 8.1 L 8.7-10.4 mg/dL Magnesium Level 1.8 1.6-2.6 mg/dL Iron Level Pending Total Iron Binding Capacity Pending Percent Iron Saturation Pending Total Bilirubin 0.4 0.2-1.0 mg/dL Aspartate Amino Transferase (AST) 11 L 13-40 U/L Alanine Aminotransferase (ALT) < 9 7-40 U/L Alkaline Phosphatase 130 H 46-116 U/L Total Protein 5.1 L 5.7-8.2 g/dL Albumin 2.8 L 3.2-4.8 g/dL Plasma/Serum Blood Alcohol < 3.0 <10 mg/dL Time of 1ST Reevaluation: 19:25 Reevaluation 1ST: Unchanged Patient Education/Counseling: Other (patient is altered) Family Education/Counseling: No Family Present SEPSIS Sepsis Screen Date sepsis recognized/suspect: Feb 13, 2025 Time Sepsis recognized/suspect: 1842 Recent Procedure: No On Antibiotic Therapy: No Respiratory Rate >20: No Heart Rate >90: Yes Temp<36 C (96.8 F) or >38.3 C: No SBP <90 or MAP <65 mmHG: No New Acute Mental Status Change: No Is the patient on CPAP, BIPAP,: No Physician Orders Urinalysis (02/13/25 18:52) Drug Screen (02/13/25 18:52) Safety Instruction Police Officer (02/13/25 18:52) Head Without Contrast (02/13/25 18:59) Straightcath If Unable To Void (02/13/25 18:59) Chest Xray 1 View (02/13/25 18:52) Type And Screen (02/13/25 19:56) Packedcell-Noactive Bleeding (02/13/25 20:53) Administer Blood Products UD (02/13/25 20:53) Iron Panel (02/13/25 20:53) Vital Signs Date Time Temp Pulse Resp B/P (MAP) Pulse Ox O2 Delivery O2 Flow Rate FiO2 02/13/25 19:40 99.4 11 20 107/54 (71) 97 99.4 02/13/25 18:38 98.9 115 96 111/56 96 98.9 Laboratory Tests Test 02/13/25 19:25 White Blood Count 10.9 10^3/uL (4.4-10.8) H Departure 1 Departure Time of Disposition: 21:15 Impression: Primary Impression: Acute metabolic encephalopathy Additional Impressions: Decubitus ulcer, buttock Symptomatic anemia Microcytic anemia Disposition: ADMITTED INPATIENT Admit to: Med Surg Condition: Guarded Comments 84-year-old female apparently lives alone. The neighbor that her mental status was worse today. Patient is alert. Quite confused. Lab results show severe anemia. Patient has a bedsore on her buttock. I suspect she is dehydrated. I ordered blood transfusion and IV fluids. Patient will need to be admitted for supportive care and further workup Critical Care Note Critical Care Time?: No Stability Stability form required: No Heart Score Heart Score: Heart Score Response (Comments) Value History N/A 0 EKG N/A 0 Age N/A 0 Risk Factors N/A 0 Troponin N/A 0 Total 0 I personally scribed for JILL ARMAS MD ([email or web address]) on 02/13/25 at 19:17. Electronically submitted by Oswaldo Flores [email or web address]). JILL ARMAS MD Feb 13, 2025 19:17
[2025-02-13 19:37] LABS: Nucleated Red Blood Cells % 0.0 %
[2025-02-13 19:39] LABS: Hematocrit 21.4 % (36.0-46.0); Mean Corpuscular Hemoglobin 20.5 pg (28.0-32.0); Mean Corpuscular Volume 65.6 fL (80.0-100.0)
[2025-02-13 19:49] LABS: Hemoglobin 6.7 g/dL (12.2-16.2)
[2025-02-13 19:53] LABS: INR 1.04 (0.9-1.15); Partial Thromboplastin Time 30.7 SEC (24.5-34.5); Prothrombin Time 11.0 sec (9.3-11.8)
[2025-02-13 19:56] LABS: Anion Gap 8 (5-15); BUN/Creatinine Ratio 28.1 (10.0-20.0); Bilirubin, Total 0.4 mg/dL (0.2-1.0); Blood Urea Nitrogen 16 mg/dL (9-23); Carbon Dioxide 25 mmol/L (20-31); Chloride 105 mmol/L (98-107); Glucose 90 mg/dL (74-106); Magnesium 1.8 mg/dL (1.6-2.6); Potassium 4.2 mmol/L (3.5-5.1); Sodium 138 mmol/L (136-145)
[2025-02-13 19:58] LABS: Alanine Aminotransferase < 9 U/L (7-40); Albumin 2.8 g/dL (3.2-4.8); Alkaline Phosphatase 130 U/L (46-116); Calcium 8.1 mg/dL (8.7-10.4); Total Protein 5.1 g/dL (5.7-8.2)
--- NOTE | 2025-02-13 20:01 | DVH ---
EXAM: CT HEAD WITHOUT CONTRAST INDICATION: ALOC COMPARISON: CT HEAD WITHOUT CONTRAST on DOS: 12/18/24, MRI BRAIN HEAD WO CONTRAST on DOS: 10/17/24 TECHNIQUE: CT of the head without intravenous contrast. Radiation Dose Information: CT Dose: CTDI volume is 49 mGy. Dose-length product is 780 mGy*cm The dose indicators for CT are the volume Computed Tomography (CT) Dose Index (CTDIvol) and the Dose Length Product (DLP), and are measured in units of mGy and mGy-cm, respectively. These indicators are not patient dose, but values generated from the CT scanner acquisition factors. The report includes radiation exposure data for exposures received during this examination. FINDINGS: Old right cerebellar infarcts. Scattered hypoattenuation in the periventricular and subcortical white matter, suggestive of chronic microvascular disease. The ventricles and sulci are mildly enlarged, compatible with generalized parenchymal volume loss. There is no mass-effect, hemorrhage, midline shift, or abnormal extra-axial fluid collection visible. No calvarial fracture. 1.4 cm calcified extra-axial lesion overlying right frontoparietal convexity. Essentially clear visualized paranasal sinuses. Mastoid air cells are clear. IMPRESSION: No acute intracranial hemorrhage or mass effect. Old right cerebellar infarcts. 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
--- NOTE | 2025-02-13 20:05 | DVH ---
CHEST RADIOGRAPH INDICATION: SOB TECHNIQUE: Single frontal view of the chest was obtained. COMPARISON: XY CHEST PORTABLE on DOS: 12/19/24, XY CHEST PORTABLE on DOS: 12/18/24 FINDINGS: Upper lung predominant scarring with mild architectural distortion. No focal consolidation. No significant pleural effusion. No pneumothorax. Stable cardiomediastinal silhouette. IMPRESSION: No focal consolidation.
[2025-02-13 20:20] LABS: Anisocytosis Slight
[2025-02-13] MEDS: SODIUM CHLORIDE 0.9% 1,000 ML IV ONE (21:30)
[2025-02-13 21:34] VITALS: O2SAT 97
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
[2025-02-13 21:51] LABS: Iron 9.0 ug/dL (50-170); Total Iron Binding Capacity 244.0 ug/dL (250-425)
[2025-02-13] MEDS ORDERED: VANCOMYCIN PER PHARMACY 0 MG IV SCH (22:00)
--- NOTE | 2025-02-13 22:28 | DVH ---
EXAM: CT CT AB PEL WO CON-NO ORAL OR IV History: Abdominal pain Comparison Study: CT CT AB PEL WO CON-NO ORAL OR IV on DOS: 08/13/24, CT CT AB PEL WO CON-NO ORAL OR IV on DOS: 11/23/23, CT ABD PELVIS WO CONTRAST on DOS: 05/06/19 TECHNIQUE: CT acquisition of the abdomen and pelvis without contrast. Axial, coronal and sagittal multiplanar reformats were obtained from the axial data set by the technologist. Radiation Dose : 1. Abdomen/Pelvis: CTDIvol 5.07 mGy, DLP 572.4 mGy*cm. FINDINGS: Evaluation of solid organs is limited due to lack of intravenous contrast use. Beam hardening and streak artifact from arms down positioning further limits assessment. Lower Chest: Small layering pleural effusions. Normal heart size with multivessel coronary atherosclerosis. Liver: Large and small simple density cystic lesions. Gallbladder and Biliary Tree: Unremarkable Pancreas: Diffuse atrophy. Spleen: Unremarkable. Adrenal Glands: Unremarkable. Kidneys/Ureters: No urinary stone or obstruction. Bladder: Contracted around a Gordon catheter, limiting assessment. Pelvic Organs: Not well visualized, may be atrophic or absent. Bowel: Small hiatal hernia. The small bowel is unremarkable. Marked circumferential cecal wall thickening. The more distal large bowel is unremarkable. No obstruction. Vasculature: Mild atherosclerosis. Lymphadenopathy: No obvious adenopathy. Peritoneum: No ascites, free air, or fluid collection. Abdominal Wall: No significant hernia. Musculoskeletal: No evidence of acute fracture. Comminuted right pubic and inferior pubic ramus fractures with callus formation compatible with partial healing. Partially imaged left proximal femur internal fixation hardware. Osteopenia and degenerative changes. IMPRESSION: 1. Circumferential wall thickening of the cecum may be infectious or neoplastic. 2. No other acute findings of the abdomen or pelvis within the exam limitations. Numerous chronic and incidental findings as above. Radiation optimization: All CT scans at this facility use at least one of these dose optimization techniques: automated exposure control mA and/or kV adjustment per patient size (includes targeted exams where dose is matched to clinical indication) or iterative reconstruction.
[2025-02-13] MEDS: VANCOMYCIN 1GM/250ML KIT 250 ML IV ONE (23:00)
[2025-02-13 23:13] VITALS: BP 102/44; PULSE 94; RESP 14; TEMP 98.9
[2025-02-13 23:30] VITALS: BP 116/43; PULSE 94; RESP 18; TEMP 98.3
[2025-02-13 23:41] LABS: Urine Protein, UAD Negative (Negative)
[2025-02-13 23:56] LABS: Opiate Scree,Urine Pos (NEGATIVE)
[2025-02-13 23:58] LABS: Amphetamine Screen, Urine Neg (NEGATIVE); Barbiturate Scree,Urine Neg (NEGATIVE); Benzodiazephine Screen, Urine Neg (NEGATIVE); Cannabinoid Screen, Urine Neg (NEGATIVE); Cocaine Screen, Urine Neg (NEGATIVE); Phencyclidine Screen, Urine Neg (NEGATIVE)
[2025-02-14] VITALS (11 sets, daily range): BP systolic 112–141; BP diastolic 42–74; PULSE 80–96; RESP 14–18; TEMP 97.8–99.5; O2SAT 94–99
[2025-02-14] MEDS: SODIUM CHLORIDE 0.9% 1,000 ML IV ONE (00:20)
[2025-02-14] MEDS: MAGNESIUM OXIDE 400 MG TAB PO ONE (01:05)
--- NOTE | 2025-02-14 02:38 | DVH ---
INDICATION: Rule out metastasis TECHNIQUE: Multiple real-time sonographic images were obtained of the right upper quadrant. COMPARISON: CT PELVIS WO CONTRAST on DOS: 12/18/24, MRI MRI ABDOMEN NO CONTRAST on DOS: 10/17/24, CT ABD PELVIS WO CONTRAST on DOS: 05/06/19 FINDINGS: Significantly limited exam secondary to combative patient with altered level of consciousness. The liver demonstrates moderately heterogeneous echotexture without focal mass lesions. The liver measures 14.7 cm. Multiple ill-defined cystic hypoechoic foci. Normal hepatopetal portal venous flow identified. No evidence of pleural effusion or abdominal ascites. There is no intrahepatic or extrahepatic ductal dilatation. The common duct was not well visualized. The gallbladder is without evidence of stone or sludge. Limited evaluation of the gallbladder. The right kidney was not well visualized. The pancreas is not well visualized due to overlying bowel gas. IMPRESSION: 1. Significantly limited exam secondary to combative patient with altered level of consciousness. 2. Moderately heterogeneous liver echotexture with multiple ill-defined cystic hypoechoic foci.
[2025-02-14] MEDS ORDERED: DOXYCYCLINE 100 MG TAB/CAP PO SCH (10:00)
[2025-02-14] MEDS: PANTOPRAZOLE 40 MG/10 ML VIAL INJ IV SCH (10:07)
[2025-02-14 11:48] LABS: Anion Gap 11 (5-15); BUN/Creatinine Ratio 36.5 (10.0-20.0); Blood Urea Nitrogen 19 mg/dL (9-23); Carbon Dioxide 21 mmol/L (20-31); Glucose 84 mg/dL (74-106); Potassium 4.2 mmol/L (3.5-5.1); Sodium 139 mmol/L (136-145)
[2025-02-14 11:49] LABS: Alanine Aminotransferase < 9 U/L (7-40); Albumin 2.5 g/dL (3.2-4.8); Alkaline Phosphatase 126 U/L (46-116); Bilirubin, Total 0.5 mg/dL (0.2-1.0); Calcium 7.9 mg/dL (8.7-10.4); Chloride 107 mmol/L (98-107); Total Protein 4.4 g/dL (5.7-8.2)
[2025-02-14] MEDS: IRON SUCROSE COMPLEX 110 ML IV SCH (13:09)
[2025-02-14] MEDS: SODIUM CHLORIDE 0.9% 500 ML IV ONE (13:09)
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
--- NOTE | 2025-02-14 13:53 | DVHINCON2 ---
GI Consult Consult Note GI consult note Date of Consultation: 02/14/2025 Chief Complaint: Severe anemia with cecal wall thickening Referring Physician: Dr Roberts H&P: 84-year-old female with past medical history of multiple strokes, anemia, dementia admitted with altered mental status. Patient is awake and answering questions. History from chart and RN also. Patient denies abdominal. No nausea or vomiting. Denies hematemesis, melena or red blood in stool. Patient has been ordered for swallow eval which is pending at this time Patient is status post 1 unit PRBCs transfused but is refusing blood draw at this time Patient is also refusing new IV to be put in No family at bedside Past Medical History: As above Past Surgical History: Social History: NO smoking, drinking ETOH and use of illegal drugs. Family History: Unsure Review of Systems: As above Physical exam: General: NAD, patient is awake Chest: lung delgado clear to auscultation Heart: RRR, no murmur Abdomen: non-distended, no tenderness to palpation, +BS Labs: Labs Test 02/14/25 10:53 02/13/25 21:20 02/13/25 20:24 02/13/25 19:25 Range/Units Sodium Level 139 136-145 mmol/L Potassium Level 4.2 3.5-5.1 mmol/L Chloride Level 107 98-107 mmol/L Carbon Dioxide Level 21 20-31 mmol/L Anion Gap 11 5-15 Blood Urea Nitrogen 19 9-23 mg/dL Creatinine 0.52 L 0.550-1.02 mg/dL Glomerular Filtration Rate Calc 91 >90 mL/min BUN/Creatinine Ratio 36.5 H 10.0-20.0 Serum Glucose 84 74-106 mg/dL Calcium Level 7.9 L 8.7-10.4 mg/dL Total Bilirubin 0.5 0.2-1.0 mg/dL Aspartate Amino Transferase (AST) 15 13-40 U/L Alanine Aminotransferase (ALT) < 9 7-40 U/L Alkaline Phosphatase 126 H 46-116 U/L Total Protein 4.4 L 5.7-8.2 g/dL Albumin 2.5 L 3.2-4.8 g/dL Urine Color Light-yellow Yellow Urine Clarity Clear Clear Urine pH 7.5 5.0-9.0 Urine Specific [place]ay 1.017 1.001-1.035 Urine Protein Negative Negative Urine Ketones Negative Negative Urine Blood Negative Negative /uL Urine Nitrite 2+ H Negative Urine Bilirubin Negative Negative Urine Urobilinogen Normal Negative mg/dL Urine Leukocyte Esterase 3+ Negative /uL Urine RBC 3 0 - 4 /hpf Urine Microscopic WBC 15 H 0-5 /HPF Urine Squamous Epithelial Cells Few <5 /hpf Urine Bacteria Many H None Seen /hpf Urine Hyaline Casts Few 0 - 2 /lpf Urine Glucose Normal Normal mg/dL Urine Opiates Screen Pos NEGATIVE Urine Fentanyl Screen Neg NEGATIVE Urine Barbiturates Screen Neg NEGATIVE Urine Phencyclidine Screen Neg NEGATIVE Urine Amphetamines Screen Neg NEGATIVE Urine Benzodiazepines Screen Neg NEGATIVE Urine Cocaine Screen Neg NEGATIVE Urine Cannabinoids Screen Neg NEGATIVE Troponin I High Sensitivity 9 </=34 ng/L White Blood Count 10.9 H 4.4-10.8 10^3/uL Red Blood Count 3.27 L 4.0-5.20 10^6/uL Hemoglobin 6.7 *L 12.2-16.2 g/dL Hematocrit 21.4 L 36.0-46.0 % Mean Corpuscular Volume 65.6 L 80.0-100.0 fL Mean Corpuscular Hemoglobin 20.5 L 28.0-32.0 pg Mean Corpuscular Hemoglobin Concent 31.2 L 32.0-36.0 g/dL Red Cell Distribution Width 18.2 H 11.8-14.3 % Platelet Count 646 H 140-450 10^3/uL Mean Platelet Volume 6.2 L 6.9-10.8 fL Neutrophils (%) (Auto) 72.4 37.0-80.0 % Lymphocytes (%) (Auto) 16.5 10.0-50.0 % Monocytes (%) (Auto) 10.2 0.0-12.0 % Eosinophils (%) (Auto) 0.1 0.0-7.0 % Basophils (%) (Auto) 0.8 0.0-2.0 % Neutrophils # (Auto) 7.8 1.6-8.6 10 ^3/uL Lymphocytes # (Auto) 1.8 0.4-5.4 10 ^3/uL Monocytes # (Auto) 1.1 0-1.3 10 ^3/uL Eosinophils # (Auto) 0 0-0.8 10 ^3/uL Basophils # (Auto) 0.1 0-0.2 10 ^3/uL Nucleated Red Blood Cells 0.0 % Platelet Estimate Increased Hypochromasia (manual) Marked Poikilocytosis (manual) Moderate Anisocytosis (manual) Slight Microcytosis Marked Prothrombin Time 11.0 9.3-11.8 sec Prothrombin Time INR 1.04 0.9-1.15 Activated Partial Thromboplast Time 30.7 24.5-34.5 SEC Magnesium Level 1.8 1.6-2.6 mg/dL Iron Level 9 L 50-170 ug/dL Total Iron Binding Capacity 244 L 250-425 ug/dL Percent Iron Saturation 3.7 L 15-50 % Carcinoembryonic Antigen 4.58 <=5.0 ng/mL Plasma/Serum Blood Alcohol < 3.0 <10 mg/dL Imaging: CT abdomen pelvis IMPRESSION: 1. Circumferential wall thickening of the cecum may be infectious or neoplastic. 2. No other acute findings of the abdomen or pelvis within the exam limitations. Numerous chronic and incidental findings as above. Liver ultrasound IMPRESSION: 1. Significantly limited exam secondary to combative patient with altered level of consciousness. 2. Moderately heterogeneous liver echotexture with multiple ill-defined cystic hypoechoic foci. Assessment: Severe anemia Sepsis possibly UTI/colitis Transaminitis Hepatic cyst Abnormal CT finding of circumferential wall thickening of the cecum Plan: Discussed with Dr. Karimi Stool for WBC, bacterial culture, stool occult blood Continue antibiotic Swallow evaluation pending Possible EGD to be considered if required if signs of bleeding but patient is refusing any procedures or even an IV at this time We will continue to monitor patient Discussed plan with RN Thank you for this consult Date of Service: Feb 14, 2025 Billing Provider: PAMELA MEAD Common Visit Codes: CONSULT ONLY Consultation Codes: [id number] CONSULT <60MIN PAMELA MEAD Feb 14, 2025 13:53
[2025-02-14] MEDS: PIPERACILLIN-TAZOB 3.375GM 100 ML IV SCH (15:03)
[2025-02-14] MEDS ORDERED: DOXYCYCLINE 100MG/100ML 100 ML IV SCH (15:45)
[2025-02-14] MEDS ORDERED: VANCOMYCIN 1GM/250ML KIT 250 ML IV SCH (23:00)
[2025-02-15 05:00] VITALS: BP 131/59; PULSE 93; RESP 17; TEMP 98.1; O2SAT 97
[2025-02-15 08:13] VITALS: PULSE 93
[2025-02-15 11:04] LABS: Hematocrit 26.5 % (36.0-46.0); Hemoglobin 8.1 g/dL (12.2-16.2); Mean Corpuscular Hemoglobin 22.2 pg (28.0-32.0); Mean Corpuscular Volume 72.8 fL (80.0-100.0); Nucleated Red Blood Cells % 0.1 %
[2025-02-15 11:21] LABS: Anion Gap 10 (5-15); BUN/Creatinine Ratio 37.0 (10.0-20.0); Blood Urea Nitrogen 20 mg/dL (9-23); Carbon Dioxide 21 mmol/L (20-31); Chloride 107 mmol/L (98-107); Glucose 87 mg/dL (74-106); Potassium 4.1 mmol/L (3.5-5.1); Sodium 138 mmol/L (136-145)
[2025-02-15 11:22] LABS: Alanine Aminotransferase < 9 U/L (7-40); Albumin 2.6 g/dL (3.2-4.8); Alkaline Phosphatase 128 U/L (46-116); Bilirubin, Total 0.4 mg/dL (0.2-1.0); Calcium 8.1 mg/dL (8.7-10.4); Total Protein 4.6 g/dL (5.7-8.2)
[2025-02-15 13:00] VITALS: BP 111/91; PULSE 97; RESP 19; TEMP 97.7; O2SAT 96
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
--- NOTE | 2025-02-15 13:57 | DVHPN2 ---
Subjective Patient is resting comfortably History from chart and staff at bedside Large bowel movement in a.m. which was dark to black in color, unable to send for stool studies possible contamination by patient Patient only is drinking coffee and not wanting to drink water Changes from previous H/P or p: No Changes Objective Vitals Vital Signs Date Time Temp Pulse Resp B/P (MAP) Pulse Ox O2 Delivery O2 Flow Rate FiO2 02/15/25 08:13 Room Air* 0 21 02/15/25 05:00 98.1 93 17 131/59 (83) 97 98.1 Intake/Output Intake and Output 02/15/25 07:00 Intake Total 200 ml Output Total 350 ml Balance -150 ml Intake Oral 0 ml IV Total 200 ml Output Urine Total 350 ml # Bowel Movements 1 Exam Patient is resting Chest lungs clear to auscultation Abdomen nondistended no tenderness to palpation positive BS Medications Current Medications Medications Dose Ordered Sig/Tray Route Start Time Stop Time Status Last Admin Dose Admin Iron Sucrose 110 ml @ 110 mls/hr DAILY@1200 IV 02/14/25 12:00 02/18/25 11:59 Pantoprazole Sodium 40 mg DAILY IV 02/14/25 10:00 02/14/25 10:07 40 MG Piperacillin Sod/ Tazobactam Sod 100 ml @ 25 mls/hr Q8HR IV 02/14/25 14:00 02/14/25 22:37 25 MLS/HR Doxycycline Hyclate 100 ml @ 50 mls/hr Q12H IV 02/14/25 15:45 Hold Laboratory Results Laboratory Tests 02/15/25 10:46 Chemistry Test 02/15/25 10:46 Albumin 2.6 g/dL (3.2-4.8) L Calcium Level 8.1 mg/dL (8.7-10.4) L Total Protein 4.6 g/dL (5.7-8.2) L LFT Test 02/15/25 10:46 Alanine Aminotransferase (ALT) < 9 U/L (7-40) Alkaline Phosphatase 128 U/L (46-116) H Aspartate Amino Transferase (AST) 15 U/L (13-40) Total Bilirubin 0.4 mg/dL (0.2-1.0) Urinalysis Test 02/13/25 21:20 Urine Color Light-yellow (Yellow) Urine Clarity Clear (Clear) Urine pH 7.5 (5.0-9.0) Urine Specific [place] 1.017 (1.001-1.035) Urine Protein Negative (Negative) Urine Ketones Negative (Negative) Urine Blood Negative /uL (Negative) Urine Nitrite 2+ (Negative) H Urine Bilirubin Negative (Negative) Urine Urobilinogen Normal mg/dL (Negative) Urine Leukocyte Esterase 3+ /uL (Negative) Urine RBC 3 /hpf (0 - 4) Urine Microscopic WBC 15 /HPF (0-5) H Urine Squamous Epithelial Cells Few /hpf (<5) Urine Bacteria Many /hpf (None Seen) H Urine Hyaline Casts Few /lpf (0 - 2) Urine Glucose Normal mg/dL (Normal) Microbiology Microbiology Date/Time Source Procedure Growth Status 02/14/25 10:55 Blood Blood Culture - Preliminary NO GROWTH AFTER 24 HOURS OF INCUBATION. Resulted 02/13/25 21:20 Voided Urine Urine Culture - Preliminary Resulted Labs and/or images reviewed: Labs reviewed by me, Image(s) reviewed by me Assessment/Plan Assessment/Plan Severe anemia Sepsis possibly UTI/colitis Transaminitis Hepatic cyst Abnormal CT finding of circumferential wall thickening of the cecum Plan: Discussed with Dr. Karimi Stool studies pending Swallow evaluation pending We will continue to monitor patient Possible EGD/colon when patient is stable and able to tolerate procedures and has any active signs of bleeding Plan discussed with: Other (RN) Date of Service: Feb 15, 2025 Billing Provider: PAMELA MEAD Common Visit Codes: [id number] INP/OBS CARE(HIGH) PAMELA MEAD Feb 15, 2025 13:57
[2025-02-15 16:51] VITALS: BP 112/93; PULSE 92; RESP 16; TEMP 97.7; O2SAT 97
[2025-02-15] MEDS ORDERED: LORA-1121 PO (16:58)
[2025-02-15] MEDS ORDERED: HYDR-4902 PO (16:58)
[2025-02-15 20:00] VITALS: PULSE 91; RESP 17
[2025-02-16] VITALS (7 sets, daily range): BP systolic 112–158; BP diastolic 47–82; PULSE 74–94; RESP 15–18; TEMP 97.6–97.9; O2SAT 96–100
--- NOTE | 2025-02-16 11:11 | DVHPN2 ---
Progress Note Date Seen: Feb 16, 2025 Resident Creating Document: YVES MORALES RESIDENT Medical Necessity Reason Pt with a Central, PICC or Fol: Yes Subjective Patient reports: No new complaints Objective vital signs Vital Sign Date Time Temp Pulse Resp B/P (MAP) Pulse Ox O2 Delivery O2 Flow Rate FiO2 02/16/25 08:05 Room Air* 0 21 02/16/25 05:00 97.7 79 17 158/82 (107) 100 97.7 Total Intake and Output 02/15/25 02/15/25 02/16/25 15:00 23:00 07:00 Intake Total 200 ml 800 ml Output Total 100 ml 400 ml Balance 100 ml 400 ml Examination Elderly female patient lying in the bed, no acute distress General: afebrile, palor, mucosae are moist Cardiovascular: Regular S1 and S2. No murmurs, gallops or rubs. No JVD elevation. No pedal edema Respiratory: Normal B/L air entry on room air. Clear lung sounds on auscultation Abdomen: Soft, nontender, nondistended, normoactive bowel sounds, no rebound tenderness, no organomegaly, no masses Genitourinary: Deferred laboratory and microbiology Laboratory Tests 02/15/25 10:46 Test 02/15/25 10:46 Range/Units Serum Glucose 87 74-106 mg/dL Microbiology Date/Time Source Procedure Growth Status 02/14/25 10:55 Blood Blood Culture - Preliminary NO GROWTH AFTER 24 HOURS OF INCUBATION. Resulted 02/13/25 21:20 Voided Urine Urine Culture - Preliminary Resulted Labs and/or images reviewed: Labs reviewed by me, Image(s) reviewed by me Problem List/Assessment/Plan Problem List/Assessment/Plan Severe anemia Sepsis secondary to acute complicated cystitis/colitis ALOC secondary to above Anemia likely iron-deficiency status post packed RBC transfusion Transaminitis Hepatic cyst Abnormal CT finding of circumferential wall thickening of the cecum Severe protein calorie malnutrition Hold cerebellar infarct Plan: Recommendation: Dr. Karimi Continue IV antibiotics, Protonix 40 mg Continue IV iron Stool studies pending Swallow evaluation pending We will continue to monitor patient Possible EGD/colon when patient is stable and able to tolerate procedures and has any active signs of bleeding Patient refusing medications/diet Case discussed Dr. Karimi Plan discussed with: Patient, Other (RN, sitter) Dietary Evaluation Review Comments: Pt meets criteria for Severe Protein-Calorie Malnutrition in the setting of acute illness based on severe wt loss 11.7kg/23% in 2 months and severe muscle & fat depletion Nutrition Recommendation: 1) Advance diet as medically feasible 2) Consider PPN if continues NPO 3) Monitor NPO status, lab values, weight trend, and I/O Expected Outcomes/Goals: Wound to improve Gain/maintain body weight Intake to meet >75% estimated needs FU 2-3 days Interpretation of weight loss: >7.5% in 3 months Body Fat Depletion (Severe): Mod to Severe Depletion Muscle Mass (Severe): Mod to Severe Depletion Protein Calorie Malnutrition: Severe Is there a minimum of two crit: Yes CC Plasma Assessment Blood Product Administration S: [id number] YVES MORALES RESIDENT Feb 16, 2025 11:11
[2025-02-16] MEDS ORDERED: ONDANSETRON HCL 4 MG/2 ML VIAL IV PRN (11:45)
[2025-02-16] MEDS: HYDROcodone-ACET 5/325MG TAB PO PRN (13:57)
[2025-02-16 14:43] LABS: Hematocrit 28.9 % (36.0-46.0); Hemoglobin 8.8 g/dL (12.2-16.2); Mean Corpuscular Hemoglobin 22.5 pg (28.0-32.0); Mean Corpuscular Volume 74.0 fL (80.0-100.0); Nucleated Red Blood Cells % 0.0 %
[2025-02-16 14:59] LABS: Anion Gap 10 (5-15); BUN/Creatinine Ratio 14.3 (10.0-20.0); Blood Urea Nitrogen 9 mg/dL (9-23); Carbon Dioxide 21 mmol/L (20-31); Chloride 107 mmol/L (98-107); Potassium 3.6 mmol/L (3.5-5.1); Sodium 138 mmol/L (136-145)
[2025-02-16 15:00] LABS: Bilirubin, Total 0.3 mg/dL (0.2-1.0)
[2025-02-16 15:01] LABS: Alanine Aminotransferase < 9 U/L (7-40); Albumin 2.8 g/dL (3.2-4.8); Alkaline Phosphatase 125 U/L (46-116); Calcium 7.9 mg/dL (8.7-10.4); Glucose 158 mg/dL (74-106); Total Protein 5.1 g/dL (5.7-8.2)
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
[2025-02-17] VITALS (8 sets, daily range): BP systolic 110–124; BP diastolic 48–62; PULSE 82–97; RESP 15–17; TEMP 97.5–98; O2SAT 95–100
[2025-02-17 09:53] LABS: Hematocrit 26.3 % (36.0-46.0); Hemoglobin 8.0 g/dL (12.2-16.2); Mean Corpuscular Hemoglobin 22.1 pg (28.0-32.0); Mean Corpuscular Volume 72.6 fL (80.0-100.0); Nucleated Red Blood Cells % 0.0 %
[2025-02-17 10:09] LABS: Anion Gap 12 (5-15); BUN/Creatinine Ratio 16.7 (10.0-20.0); Blood Urea Nitrogen 11 mg/dL (9-23); Carbon Dioxide 20 mmol/L (20-31); Chloride 107 mmol/L (98-107); Potassium 3.9 mmol/L (3.5-5.1); Sodium 139 mmol/L (136-145)
[2025-02-17 10:15] LABS: Alanine Aminotransferase < 9 U/L (7-40); Albumin 2.5 g/dL (3.2-4.8); Alkaline Phosphatase 118 U/L (46-116); Bilirubin, Total 0.3 mg/dL (0.2-1.0); Calcium 8.1 mg/dL (8.7-10.4); Glucose 133 mg/dL (74-106); Total Protein 4.4 g/dL (5.7-8.2)
--- NOTE | 2025-02-17 16:57 | MEDREC ---
[facility] Intervention Section I [facility] Intervention: Review courses of therapy (PLEASE CONSIDER REVIEWING COURSE OF THERAPY BASED ON CULTURE RESULTS ) BARBARA CONSTANTINO PHARMACIST Feb 17, 2025 16:57
--- NOTE | 2025-02-17 19:14 | DVHPN2 ---
Progress Note - Dictate Date Seen: Feb 17, 2025 Medical Necessity Reason Pt with a Central, PICC or Fol: No Subjective Patient seen at bedside, patient is still confused No active GI bleeding reported Patient is getting IV iron vital signs Vital Sign Date Time Temp Pulse Resp B/P (MAP) Pulse Ox O2 Delivery O2 Flow Rate FiO2 02/17/25 17:00 98.0 83 17 114/59 (77) 96 98.0 02/17/25 08:20 Room Air* 0 21 Total Intake and Output 02/16/25 02/16/25 02/17/25 15:00 23:00 07:00 Intake Total 985 ml 510 ml Output Total 650 ml 800 ml Balance 335 ml -290 ml medications Current Medications Medications Dose Ordered Sig/Tray Route Start Time Stop Time Status Last Admin Dose Admin Iron Sucrose 110 ml @ 110 mls/hr DAILY@1200 IV 02/14/25 12:00 02/18/25 11:59 02/17/25 10:40 110 MLS/HR Pantoprazole Sodium 40 mg DAILY IV 02/14/25 10:00 02/17/25 10:40 40 MG Piperacillin Sod/ Tazobactam Sod 100 ml @ 25 mls/hr Q8HR IV 02/14/25 14:00 02/17/25 14:32 25 MLS/HR Doxycycline Hyclate 100 ml @ 50 mls/hr Q12H IV 02/14/25 15:45 Hold Ondansetron HCl 4 mg Q6HPRN PRN IV 02/16/25 11:45 Acetaminophen/ Hydrocodone Bitart 1 tab Q8HPRN PRN PO 02/16/25 11:45 02/16/25 22:40 1 TAB objective General: afebrile, palor, mucosae are moist; patient altered, appears to have dementia Cardiovascular: Regular S1 and S2. No murmurs, gallops or rubs. No JVD elevation. No pedal edema Respiratory: Normal B/L air entry on room air. Clear lung sounds on auscultation Abdomen: Soft, nontender, nondistended, normoactive bowel sounds, no rebound tenderness, no organomegaly, no masses laboratory and microbiology Laboratory Tests 02/17/25 09:29 Test 02/17/25 09:29 Range/Units Serum Glucose 133 H 74-106 mg/dL CT SCAN ABD PELVIS IMPRESSION: 1. Circumferential wall thickening of the cecum may be infectious or neoplastic. 2. No other acute findings of the abdomen or pelvis within the exam limitations. Numerous chronic and incidental findings as above. LIVER USG IMPRESSION: 1. Significantly limited exam secondary to combative patient with altered level of consciousness. 2. Moderately heterogeneous liver echotexture with multiple ill-defined cystic hypoechoic foci. Problems(with codes): (1) Symptomatic anemia (2) Acute metabolic encephalopathy (3) Dementia Prognosis Plan Continue IV iron infusions Continue supportive care Diet as tolerated Patient had been advised outpatient elective colonoscopy and an endoscopy Patient however repeatedly canceled her procedures and did not want to do endoscopic workup Risks of colon cancer had been explained to the patient Patient had been referred to under protective Services Patient might benefit from a colonoscopy if the patient is agreeable and can be prepped I will follow up patient with you, monitor labs, check CEA level Prognosis remains guarded Dietary Evaluation Review Comments: Pt meets criteria for Severe Protein-Calorie Malnutrition in the setting of acute illness based on severe wt loss 11.7kg/23% in 2 months and severe muscle & fat depletion Nutrition Recommendation: 1) Advance diet as medically feasible 2) Consider PPN if continues NPO 3) Monitor NPO status, lab values, weight trend, and I/O Expected Outcomes/Goals: Wound to improve Gain/maintain body weight Intake to meet >75% estimated needs FU 2-3 days Interpretation of weight loss: >7.5% in 3 months Body Fat Depletion (Severe): Mod to Severe Depletion Muscle Mass (Severe): Mod to Severe Depletion Protein Calorie Malnutrition: Severe Is there a minimum of two crit: Yes Plan discussed with: Patient, Other (Nurse at bedside) CC Plasma Assessment Blood Product Administration S: [id number] MIHCEAL MARROQUIN MD Feb 17, 2025 19:14
[2025-02-17 21:45] LABS: Urine Protein, UAD Negative (Negative)
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
[2025-02-18] VITALS (8 sets, daily range): BP systolic 102–116; BP diastolic 38–55; PULSE 77–96; RESP 16; TEMP 98.1–98.6; O2SAT 98–100
[2025-02-18 09:33] LABS: Hemoglobin 8.3 g/dL (12.2-16.2); Nucleated Red Blood Cells % 0.1 %
[2025-02-18 09:35] LABS: Hematocrit 26.8 % (36.0-46.0); Mean Corpuscular Hemoglobin 22.8 pg (28.0-32.0); Mean Corpuscular Volume 73.8 fL (80.0-100.0)
[2025-02-18 09:39] LABS: Anion Gap 10 (5-15); Carbon Dioxide 23 mmol/L (20-31); Potassium 3.7 mmol/L (3.5-5.1); Sodium 140 mmol/L (136-145)
[2025-02-18 09:45] LABS: BUN/Creatinine Ratio 9.5 (10.0-20.0)
[2025-02-18 09:50] LABS: Blood Urea Nitrogen 6 mg/dL (9-23); Calcium 8.1 mg/dL (8.7-10.4); Chloride 107 mmol/L (98-107); Glucose 122 mg/dL (74-106)
[2025-02-18] MEDS: ERTAPENEM SOD INJ 1 GM in SODIUM CHL 0.9% 50 ML IV SCH (14:06)
--- NOTE | 2025-02-18 14:06 | DVHPN2 ---
Subjective Patient is resting comfortably History from chart and staff at bedside bowel movement in a.m. Reviewed: Care Plan, H&P, Labs, Medications, Previous Orders, Radiology Changes from previous H/P or p: No Changes General: Per HPI Objective Vitals Vital Signs Date Time Temp Pulse Resp B/P (MAP) Pulse Ox O2 Delivery O2 Flow Rate FiO2 02/18/25 08:25 Room Air* 0 21 02/18/25 05:00 89 16 116/38 (64) 02/18/25 01:00 99 02/17/25 17:00 98.0 98.0 Intake/Output Intake and Output 02/18/25 07:00 Intake Total 1500 ml Output Total 625 ml Balance 875 ml Intake Oral 1100 ml IV Total 400 ml Output Urine Total 625 ml # Bowel Movements 2 Exam Patient is resting Chest lungs clear to auscultation Abdomen nondistended no tenderness to palpation positive BS General Appearance: Alert, Oriented X3, Cooperative Medications Current Medications Medications Dose Ordered Sig/Tray Route Start Time Stop Time Status Last Admin Dose Admin Pantoprazole Sodium 40 mg DAILY IV 02/14/25 10:00 02/17/25 10:40 40 MG Doxycycline Hyclate 100 ml @ 50 mls/hr Q12H IV 02/14/25 15:45 Hold Ondansetron HCl 4 mg Q6HPRN PRN IV 02/16/25 11:45 Acetaminophen/ Hydrocodone Bitart 1 tab Q8HPRN PRN PO 02/16/25 11:45 02/17/25 20:56 1 TAB Ertapenem 1 gm/ Sodium Chloride 50 ml @ 100 mls/hr DAILY IV 02/18/25 13:00 Enteral Nutritional Formula 240 ml TIDWM PO 02/18/25 18:00 UNV Laboratory Results Laboratory Tests 02/18/25 08:54 Chemistry Test 02/18/25 08:54 Calcium Level 8.1 mg/dL (8.7-10.4) L Urinalysis Test 02/13/25 21:20 02/17/25 21:07 Urine Hyaline Casts Few /lpf (0 - 2) Urine Color Light-yellow (Yellow) Urine Clarity Clear (Clear) Urine pH 5.5 (5.0-9.0) Urine Specific [place] 1.015 (1.001-1.035) Urine Protein Negative (Negative) Urine Ketones Negative (Negative) Urine Blood Trace /uL (Negative) H Urine Nitrite Negative (Negative) Urine Bilirubin Negative (Negative) Urine Urobilinogen Normal mg/dL (Negative) Urine Leukocyte Esterase 1+ /uL (Negative) Urine RBC 9 /hpf (0 - 4) Urine Microscopic WBC 6 /HPF (0-5) H Urine Squamous Epithelial Cells Few /hpf (<5) Urine Calcium Oxalate Crystals Few (None Seen) Urine Bacteria None seen /hpf (None Seen) Urine Glucose Normal mg/dL (Normal) Microbiology Microbiology Date/Time Source Procedure Growth Status 02/14/25 10:55 Blood Blood Culture - Preliminary NO GROWTH AFTER 72 HOURS OF INCUBATION. Resulted 02/13/25 21:20 Voided Urine Urine Culture - Final Proteus mirabilis - ESBL Complete Labs and/or images reviewed: Labs reviewed by me, Image(s) reviewed by me Assessment/Plan Assessment/Plan Severe anemia Sepsis possibly UTI/colitis Transaminitis Hepatic cyst Abnormal CT finding of circumferential wall thickening of the cecum Plan: Discussed with Dr. Karimi Continue supportive care Monitor lab Possible EGD/colon when patient is stable and able to tolerate procedures and has any active signs of bleeding Plan discussed with: Other (RN) Date of Service: Feb 18, 2025 Billing Provider: PAMELA MEAD Common Visit Codes: [id number] INP/OBS CARE(HIGH) PAMELA MEAD Feb 18, 2025 14:06
[2025-02-18] MEDS: POTASSIUM EFFERVESENT TAB 25 MEQ PO ONE (14:57)
[2025-02-18] MEDS: Ensure HIGH Protein Chocolate 8oz Bottle PO SCH (18:25)
--- NOTE | 2025-02-18 19:23 | DVHPNRES ---
Progress Note Date Seen: Feb 18, 2025 Resident Creating Document: DEBORAH SANCHEZ RESIDENT Has the PT tested + for MRSA If YES, has PT been informed?: No Medical Necessity Reason Pt with a Central, PICC or Fol: No Subjective Review of Systems Mr. Rosaura Bright, an 84-year-old female, with past medical history of multiple strokes, chronic anemia and dementia. The patient presented to the ER brought by EMS due to altered mental status. According to the ER nurse, the patient neighbors reported the patient is normally A&O x4, but she was noticed had altered mental status of unknown duration. In the ED the patient was A&O 0 with altered mental status. A detailed review of system could not be obtained. The patient has a right hip wound present on admission. In the ED the patient's hemoglobin was 6.8, she received 1 unit blood transfusion. The patient was admitted for further assessment and management. Past medical history: As above Allergies: Fish, tape, tetracycline Past surgical history: unknown Social history: Denies smoking, alcohol or drugs. Information provided by family member (Niece) Hospital Course: On 02/18/25, the patient was evaluated and examined at bedside. The patient report feeling better. The patient's Hb is trending up. The urine culture showed Proteus M. and ESBL, the patient was started on IV Ertapenem. GI Is on board, they will performed an EGD and colonoscopy as an outpatient. Due to clinical improvement safety discharge planing has started. Today, I discussed with patient family member (Niece) about the the need for SNF to complete IV antibiotic. The patient's niece agrees with the SNF plan. A social consult was placed. We will continue following the progress of this patient closely. ROS: Constitutional: Complains of generalize weakness and fatigue. HEENT: Denies changes in vision and hearing. Respiratory: denies of cough, nasal congestion Cardiovascular: Denies chest discomfort or palpitations GI: epigastric abdominal pain improved, nausea, vomiting and diarrhea. : Denies dysuria and urinary frequency. Musculoskeletal: Chronically increased muscle tone in bilateral lower limb, incoordination Skin: Denies rash and pruritus. Neurological: complains of fatigue and complains of hearing problems due to age. Objective vital signs Vital Sign Date Time Temp Pulse Resp B/P (MAP) Pulse Ox O2 Delivery O2 Flow Rate FiO2 02/18/25 17:00 98.6 93 16 108/55 (72) 98 98.6 02/18/25 08:25 Room Air* 0 21 Total Intake and Output 02/17/25 02/17/25 02/18/25 15:00 23:00 07:00 Intake Total 100 ml 800 ml 600 ml Output Total 625 ml Balance 100 ml 800 ml -25 ml medications Current Medications Medications Dose Ordered Sig/Tray Route Start Time Stop Time Status Last Admin Dose Admin Pantoprazole Sodium 40 mg DAILY IV 02/14/25 10:00 02/17/25 10:40 40 MG Doxycycline Hyclate 100 ml @ 50 mls/hr Q12H IV 02/14/25 15:45 Hold Ondansetron HCl 4 mg Q6HPRN PRN IV 02/16/25 11:45 Acetaminophen/ Hydrocodone Bitart 1 tab Q8HPRN PRN PO 02/16/25 11:45 02/18/25 14:04 1 TAB Ertapenem 1 gm/ Sodium Chloride 50 ml @ 100 mls/hr DAILY IV 02/18/25 13:00 02/18/25 14:06 100 MLS/HR Enteral Nutritional Formula 240 ml TIDWM PO 02/18/25 18:00 02/18/25 18:25 240 ML Examination General Appearance: Pale, Alert, Oriented in person only, Cooperative, No acute distress HEENT: Atraumatic, PERRLA, EOMI, Mucous membr. moist/pink Respiratory: Normal air movement Cardiovascular: Regular rate, Normal S1, Normal S2, No murmurs, no chest pain on palpation of the chest. Abdominal: Normal bowel sounds, Soft, No tenderness, No hepatospenomegaly, No masses Extremities: No clubbing, No cyanosis, No edema, Normal pulses, No tenderness/swelling Skin: Right hip ulcer, stage 2-3 Neuro: Normal speech, Strength at 5/5 X4 ext, Normal tone, Sensation intact, Cranial nerves 3-12 NL, Reflexes 2+ Psych/Mental Status: oriented only in person. confused. laboratory and microbiology Laboratory Tests 02/18/25 08:54 Test 02/18/25 08:54 Range/Units Serum Glucose 122 H 74-106 mg/dL Microbiology Date/Time Source Procedure Growth Status 02/14/25 10:55 Blood Blood Culture - Preliminary NO GROWTH AFTER 72 HOURS OF INCUBATION. Resulted 02/13/25 21:20 Voided Urine Urine Culture - Final Proteus mirabilis - ESBL Complete Labs and/or images reviewed: Labs reviewed by me Problem List/Assessment/Plan Problem List/Assessment/Plan #Sepsis due to acute complicated UTI possible cystitis #Sepsis due to possible acute colitis #Acute metabolic encephalopathy due to above Labs show neutrophilic leukocytosis Blood culture, wound culture, stool culture, C diff ordered IV vancomycin, IV ceftriaxone and IV metronidazole ordered Vancomycin discontinued due to allergic reaction with severe itching. Head CT:No acute intracranial hemorrhage or mass effect. Abdomen pelvis CT: Circumferential wall thickening of the cecum may be infectious or neoplastic. advance diet after swallow eval IV fluids in moderation. #Severe microcytic hypochromic anemia requiring blood transfusion #Acute possible upper vs lower GI hemorrhage #Acute Dehydration IV iron infusion started IV Protonix started FOBT positive IV fluids in moderation, low BMI Packed RBCs: 1 unit, Monitor H&H GI consulted Previously patient was admitted in December at [facility], during that admission EGD was not done due to patient being poor candidate for anesthesia. #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 #Possible Chronic Dementia Continue follow up with PCP #Chronic Hepatic cyst Liver ultrasound: Moderately heterogeneous liver echotexture with multiple ill- defined cystic hypoechoic foci. Monitor labs, consult GI, follow up outpatient #CKD stage II Avoid nephrotoxins Monitor #Moderate Malnutrition Low albumin. Low BMI 21.0 Ensure BID GI prophylaxis: Pantoprazole DVT prophylaxis: SCDs Diet: Mechanical soft diet Code status: Full code PCP: Mumtaz. Goals of care discussed with patient and niece >30min. Case and plan discussed with Dr. Chaudhry. Plan discussed with: Patient, Other (Niece) My Orders My Orders Orders - DEBORAH SANCHEZ RESIDENT Procedure Category Date Status Time Ertapenem Sod Inj PHA 02/18/25 In Process (Invanz) 13:00 Hemoglobin & LAB 02/19/25 Verified Hematocrit 04:00 Nutritional PHA 02/18/25 In Process Supplements (Ensure 18:00 Insert Midline ORDERS 02/18/25 Transmitted 16:46 Dietary Evaluation Review Comments: Pt meets criteria for Severe Protein-Calorie Malnutrition in the setting of acute illness based on severe wt loss 11.7kg/23% in 2 months and severe muscle & fat depletion Nutrition Recommendation: 1) Advance diet as medically feasible 2) Consider PPN if continues NPO 3) Monitor NPO status, lab values, weight trend, and I/O Expected Outcomes/Goals: Wound to improve Gain/maintain body weight Intake to meet >75% estimated needs FU 2-3 days Interpretation of weight loss: >7.5% in 3 months Body Fat Depletion (Severe): Mod to Severe Depletion Muscle Mass (Severe): Mod to Severe Depletion Protein Calorie Malnutrition: Severe Is there a minimum of two crit: Yes CC Plasma Assessment Blood Product Administration S: [id number] Visit Coding STANDARD RES Billing Provider: ODETTE ROLDAN MD Date of Service if different f: Feb 18, 2025 Common Visit Codes: [id number] INP/OBS CARE(HIGH) DEBORAH SANCHEZ RESIDENT Feb 18, 2025 19:23
[2025-02-19 05:00] VITALS: BP 0/74; PULSE 87; RESP 16; TEMP 96.9; O2SAT 96
[2025-02-19 08:00] VITALS: PULSE 91; RESP 17; O2SAT 99
[2025-02-19 09:41] VITALS: BP 110/50; PULSE 91; RESP 17; TEMP 97.5; O2SAT 99
[2025-02-19] MEDS ORDERED: HALOPERIDOL LACTATE 5 MG/ML INJ VIAL IM ONE (10:30)
[2025-02-19] MEDS ORDERED: diphenhydrAMINE HCL 50 MG/1 ML VL IV ONE (10:30)
[2025-02-19 13:31] LABS: Hematocrit 26.0 % (36.0-46.0); Hemoglobin 8.1 g/dL (12.2-16.2)
[2025-02-19 14:10] VITALS: BP 120/62; PULSE 86; RESP 17; TEMP 97.6; O2SAT 99
--- NOTE | 2025-02-19 14:31 | DVHPN2 ---
Progress Note - Dictate Date Seen: Feb 19, 2025 Has the PT tested + for MRSA If YES, has PT been informed?: No Medical Necessity Reason Pt with a Central, PICC or Fol: No Subjective Patient seen at bedside, patient is still confused No active GI bleeding reported Patient is getting IV iron vital signs Vital Sign Date Time Temp Pulse Resp B/P (MAP) Pulse Ox O2 Delivery O2 Flow Rate FiO2 02/19/25 14:10 97.6 86 17 120/62 (81) 99 97.6 02/19/25 08:00 Room Air* 0 21 Total Intake and Output 02/18/25 02/18/25 02/19/25 15:00 23:00 07:00 Intake Total 780 ml 200 ml Output Total 1602 ml 500 ml Balance -822 ml -300 ml medications Current Medications Medications Dose Ordered Sig/Tray Route Start Time Stop Time Status Last Admin Dose Admin Pantoprazole Sodium 40 mg DAILY IV 02/14/25 10:00 02/19/25 10:27 40 MG Doxycycline Hyclate 100 ml @ 50 mls/hr Q12H IV 02/14/25 15:45 Hold Ondansetron HCl 4 mg Q6HPRN PRN IV 02/16/25 11:45 Acetaminophen/ Hydrocodone Bitart 1 tab Q8HPRN PRN PO 02/16/25 11:45 02/18/25 22:27 1 TAB Ertapenem 1 gm/ Sodium Chloride 50 ml @ 100 mls/hr DAILY IV 02/18/25 13:00 02/19/25 10:28 100 MLS/HR Enteral Nutritional Formula 240 ml TIDWM PO 02/18/25 18:00 02/19/25 12:00 240 ML objective General: afebrile, palor, mucosae are moist; patient altered, appears to have dementia Cardiovascular: Regular S1 and S2. No murmurs, gallops or rubs. No JVD elevation. No pedal edema Respiratory: Normal B/L air entry on room air. Clear lung sounds on auscultation Abdomen: Soft, nontender, nondistended, normoactive bowel sounds, no rebound tenderness, no organomegaly, no masses laboratory and microbiology Laboratory Tests 02/19/25 13:05 02/18/25 08:54 Test 02/18/25 08:54 Range/Units Serum Glucose 122 H 74-106 mg/dL Problems(with codes): (1) Dementia (2) Symptomatic anemia (3) Acute metabolic encephalopathy (4) Microcytic anemia (5) Dehydration (6) Abnormal finding on GI tract imaging Prognosis Assessment plan Patient has been notified and also told in clinic that there was a suspicion for a possible cecal mass based on the CT findings Patient however had refused colonoscopy and endoscopic workup during clinic visits Currently she is confused and does not seem to be in a stable condition to cooperate on proceed with a colonoscopy Check CEA level Dietary Evaluation Review Comments: Pt meets criteria for Severe Protein-Calorie Malnutrition in the setting of acute illness based on severe wt loss 11.7kg/23% in 2 months and severe muscle & fat depletion Nutrition Recommendation: 1) Advance diet as medically feasible 2) Consider PPN if continues NPO 3) Monitor NPO status, lab values, weight trend, and I/O Expected Outcomes/Goals: Wound to improve Gain/maintain body weight Intake to meet >75% estimated needs FU 2-3 days Interpretation of weight loss: >7.5% in 3 months Body Fat Depletion (Severe): Mod to Severe Depletion Muscle Mass (Severe): Mod to Severe Depletion Protein Calorie Malnutrition: Severe Is there a minimum of two crit: Yes Plan discussed with: Patient CC Plasma Assessment Blood Product Administration S: [id number] MICHEAL MARROQUIN MD Feb 19, 2025 14:31
--- NOTE | 2025-02-19 15:52 | DVHDSRES ---
Discharge Summary Date of Admission Resident Creating Document: DEBORAH SANCHEZ RESIDENT Feb 13, 2025 at 22:08 Date of Discharge: Feb 19, 2025 Admitting Diagnosis #Sepsis due to acute complicated UTI possible cystitis #Sepsis due to possible acute colitis #Acute metabolic encephalopathy due to above #Severe microcytic hypochromic anemia requiring blood transfusion #Acute possible upper vs lower GI hemorrhage #Acute Dehydration Wounds: Left hip wound present on admission. Labs/Diagnostic Data: Laboratory Results Test 02/19/25 13:05 02/18/25 08:54 02/17/25 21:07 02/17/25 09:29 Hemoglobin 8.1 g/dL (12.2-16.2) Hematocrit 26.0 % (36.0-46.0) White Blood Count 7.2 10^3/uL (4.4-10.8) Red Blood Count 3.63 10^6/uL (4.0-5.20) Mean Corpuscular Volume 73.8 fL (80.0-100.0) Mean Corpuscular Hemoglobin 22.8 pg (28.0-32.0) Mean Corpuscular Hemoglobin Concent 31.0 g/dL (32.0-36.0) Red Cell Distribution Width 23.7 % (11.8-14.3) Platelet Count 582 10^3/uL (140-450) Mean Platelet Volume 6.4 fL (6.9-10.8) Neutrophils (%) (Auto) 68.4 % (37.0-80.0) Lymphocytes (%) (Auto) 21.3 % (10.0-50.0) Monocytes (%) (Auto) 8.1 % (0.0-12.0) Eosinophils (%) (Auto) 1.5 % (0.0-7.0) Basophils (%) (Auto) 0.7 % (0.0-2.0) Neutrophils # (Auto) 4.9 10 ^3/uL (1.6-8.6) Lymphocytes # (Auto) 1.5 10 ^3/uL (0.4-5.4) Monocytes # (Auto) 0.6 10 ^3/uL (0-1.3) Eosinophils # (Auto) 0.1 10 ^3/uL (0-0.8) Basophils # (Auto) 0.1 10 ^3/uL (0-0.2) Nucleated Red Blood Cells 0.1 % Sodium Level 140 mmol/L (136-145) Potassium Level 3.7 mmol/L (3.5-5.1) Chloride Level 107 mmol/L (98-107) Carbon Dioxide Level 23 mmol/L (20-31) Anion Gap 10 (5-15) Blood Urea Nitrogen 6 mg/dL (9-23) Creatinine 0.63 mg/dL (0.550-1.02) Glomerular Filtration Rate Calc 87 mL/min (>90) BUN/Creatinine Ratio 9.5 (10.0-20.0) Serum Glucose 122 mg/dL (74-106) Calcium Level 8.1 mg/dL (8.7-10.4) Urine Color Light-yellow (Yellow) Urine Clarity Clear (Clear) Urine pH 5.5 (5.0-9.0) Urine Specific [place] 1.015 (1.001-1.035) Urine Protein Negative (Negative) Urine Ketones Negative (Negative) Urine Blood Trace /uL (Negative) Urine Nitrite Negative (Negative) Urine Bilirubin Negative (Negative) Urine Urobilinogen Normal mg/dL (Negative) Urine Leukocyte Esterase 1+ /uL (Negative) Urine RBC 9 /hpf (0 - 4) Urine Microscopic WBC 6 /HPF (0-5) Urine Squamous Epithelial Cells Few /hpf (<5) Urine Calcium Oxalate Crystals Few (None Seen) Urine Bacteria None seen /hpf (None Seen) Urine Glucose Normal mg/dL (Normal) Total Bilirubin 0.3 mg/dL (0.2-1.0) Aspartate Amino Transferase (AST) < 8 U/L (13-40) Alanine Aminotransferase (ALT) < 9 U/L (7-40) Alkaline Phosphatase 118 U/L (46-116) Total Protein 4.4 g/dL (5.7-8.2) Albumin 2.5 g/dL (3.2-4.8) Test 02/16/25 14:28 02/13/25 21:20 02/13/25 20:24 02/13/25 19:25 Stool Occult Blood Positive (Negative) Stool Occult Blood Sample #3 (Negative) Stool for White Cells Few Urine Hyaline Casts Few /lpf (0 - 2) Urine Opiates Screen Pos (NEGATIVE) Urine Fentanyl Screen Neg (NEGATIVE) Urine Barbiturates Screen Neg (NEGATIVE) Urine Phencyclidine Screen Neg (NEGATIVE) Urine Amphetamines Screen Neg (NEGATIVE) Urine Benzodiazepines Screen Neg (NEGATIVE) Urine Cocaine Screen Neg (NEGATIVE) Urine Cannabinoids Screen Neg (NEGATIVE) Troponin I High Sensitivity 9 ng/L (</=34) Platelet Estimate Increased Hypochromasia (manual) Marked Poikilocytosis (manual) Moderate Anisocytosis (manual) Slight Microcytosis Marked Prothrombin Time 11.0 sec (9.3-11.8) Prothrombin Time INR 1.04 (0.9-1.15) Activated Partial Thromboplast Time 30.7 SEC (24.5-34.5) Magnesium Level 1.8 mg/dL (1.6-2.6) Iron Level 9 ug/dL (50-170) Total Iron Binding Capacity 244 ug/dL (250-425) Percent Iron Saturation 3.7 % (15-50) Carcinoembryonic Antigen 4.58 ng/mL (<=5.0) Plasma/Serum Blood Alcohol < 3.0 mg/dL (<10) Other Laboratory Tests 02/19/25 13:05 02/18/25 08:54 Brief Hx & Hospital Course: HPI: Mr. Rosaura Bright, an 84-year-old female, with past medical history of multiple strokes, chronic anemia and dementia. The patient presented to the ER brought by EMS due to altered mental status. According to the ER nurse, the patient neighbors reported the patient is normally A&O x4, but she was noticed had altered mental status of unknown duration. In the ED the patient was A&O 0 with altered mental status. A detailed review of system could not be obtained. The patient has a right hip wound present on admission. In the ED the patient's hemoglobin was 6.8, she received 1 unit blood transfusion. The patient was admitted for further assessment and management. Past medical history: As above Allergies: Fish, tape, tetracycline Past surgical history: unknown Social history: Denies smoking, alcohol or drugs. Information provided by family member (Niece) Hospital Course: The patient was admitted for sepsis due to acute complicated UTI and severe anemia Hb was 6.7mg, she received 1 RBC unit and was started on empiric IV antibiotics. The urine culture showed Proteus M. and ESBL + the patient was started on IV Ertapenem. GI was on board for possible upper vs lower GI bleeding , GI recommended EGD and colonoscopy, but patient refused procedure. After transfusion of 1 RBC unit the patient's Hb improved to 8.0mg/dl, her mental status improved and the discharge planing has started. I discussed with patient family member (Niece) about the the need for SNF to complete IV antibiotic. The patient's niece agreed with the SNF plan. A social consult was placed. The patient was accepted in [place] [facility] for completion of IV antibiotic: Ertapenem 1g via midline daily for 7 days. Due to clinical improvement, the patient is being discharge today to SNF for IV antibiotic completion and she will follow up in D/C clinic and with PCP in 1 week. ROS: Constitutional: reports improvement of generalize weakness and fatigue. HEENT: Denies changes in vision and hearing. Respiratory: denies of cough, nasal congestion Cardiovascular: Denies chest discomfort or palpitations GI: epigastric abdominal pain improved, nausea, vomiting and diarrhea. : Denies dysuria and urinary frequency. Musculoskeletal: Chronically increased muscle tone in bilateral lower limb, incoordination Skin: Denies rash and pruritus. Neurologic: complains of hearing problems due to age. Physical exam General Appearance: Pale, Alert, Oriented x3 Cooperative, No acute distress HEENT: Atraumatic, PERRLA, EOMI, Mucous membr. moist/pink Respiratory: Normal air movement Cardiovascular: Regular rate, Normal S1, Normal S2, No murmurs, no chest pain on palpation of the chest. Abdominal: Normal bowel sounds, Soft, No tenderness, No hepatospenomegaly, No masses Extremities: No clubbing, No cyanosis, No edema, Normal pulses, No tenderness/swelling Skin: Right hip ulcer, stage 2-3 Neuro: Normal speech, Strength at 5/5 X4 ext, Normal tone, Sensation intact, Cranial nerves 3-12 NL, Reflexes 2+ Psych/Mental Status: Mood WNL Consults/Reason for consult GI: Upper vs Lower GI bleeding Condition at Discharge: Stable Final Diagnosis/Problems List #Sepsis due to acute complicated UTI possible cystitis #Sepsis due to possible acute colitis #Acute metabolic encephalopathy due to above #Severe microcytic hypochromic anemia requiring blood transfusion #Acute possible upper vs lower GI hemorrhage #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 #Possible Chronic Dementia #Chronic Hepatic cyst #Acute Dehydration #CKD stage II #Moderate Malnutrition Discharge Disposition: Group Home Facility SNF Discharge Will this Physician continue t: Yes (For completion of IV antibiotics) Discharge Instruct/Medications Diet: Cardiac 2g Na,low cholest Activity: No Restrictions, As Tolerated Follow Up/Referral: F/U with PCP in 1 week Medications: Continue Ertapenem 1g IV daily for 7 days via midline in SNF Scheduled Alendronate Sodium (Alendronate Sodium), 70 MG OR QWEEKLY, (Reported) Hydrocodone-Acetaminophen (Hydrocodone Bitartrate/AC 5-325 mg), 1 TAB PO Q5HP, (Reported) Lorazepam (Ativan Tablet), 1 TAB PO HS, (Reported) Scheduled PRN Ibuprofen Micronized (Ibuprofen), 600 MG PO Q6HPRN PRN Ibuprofen Micronized (Ibuprofen), 600 MG PO Q6HPRN PRN Discharge Statement: "Patient was advised to return to the ER or call 911 if any headaches, dizziness, shortness of breath, chest pain, abdominal pain, bleeding, fevers, or worsening of medical condition. Patient was counseled about treatment plan, medications, possible side effects, patientverbalized understanding. All questions were answered to the best of my ability. 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 Goals of care discussed with patient and niece >30min. Case and plan discussed with Dr. Chaudhry. Plan discussed with: Patient, Other (Niece) The patient and niece agreed with the d/c plan to SNF for IV antibiotic completion. Visit Coding STANDARD RES Billing Provider: ODETTE ROLDAN MD Date of Service if different f: Feb 19, 2025 Common Visit Codes: 39683-DRW/OBS DISCH DAY >30min DEBORAH SANCHEZ RESIDENT Feb 19, 2025 15:52
== END 2025-02-19 16:18 | DRG 871 ==
LOC: ER 18:33 → EDBD 18:33 → OVERFLOW 22:04 → TELE-CENTR 02-14 04:26
PROVIDERS: ADMIT Student in an Organized Health Care Education/Training Program; ATTEND Student in an Organized Health Care Education/Training Program
PROC: 30233N1 Transfusion of Nonautologous Red Blood Cells into Peripheral Vein, Percutaneous Approach (ICD-10-PCS; principal; 2025-02-13)
PROC: 05HC33Z Insertion of Infusion Device into Left Basilic Vein, Percutaneous Approach (ICD-10-PCS; 2025-02-19)
PROC: B54NZZA Ultrasonography of Left Upper Extremity Veins, Guidance (ICD-10-PCS; 2025-02-19)
DX: A41.9 Sepsis, unspecified organism (principal); G93.41 Metabolic encephalopathy; K92.2 Gastrointestinal hemorrhage, unspecified; E44.0 Moderate protein-calorie malnutrition; L89.309 Pressure ulcer of unspecified buttock, unspecified stage; K76.89 Other specified diseases of liver; N30.90 Cystitis, unspecified without hematuria; D50.9 Iron deficiency anemia, unspecified; F02.80 Dementia in other diseases classified elsewhere, unspecified severity, without behavioral disturbance, psychotic disturbance, mood disturbance, and anxiety; I12.9 Hypertensive chronic kidney disease with stage 1 through stage 4 chronic kidney disease, or unspecified chronic kidney disease; Z68.1 Body mass index [BMI] 19.9 or less, adult; D32.9 Benign neoplasm of meninges, unspecified; K52.9 Noninfective gastroenteritis and colitis, unspecified; E86.0 Dehydration; N18.2 Chronic kidney disease, stage 2 (mild); G30.9 Alzheimer's disease, unspecified; Z74.01 Bed confinement status; Z91.013 Allergy to seafood; Z91.048 Other nonmedicinal substance allergy status; Z79.1 Long term (current) use of non-steroidal anti-inflammatories (NSAID); Z79.899 Other long term (current) drug therapy; Z90.710 Acquired absence of both cervix and uterus; Z86.73 Personal history of transient ischemic attack (TIA), and cerebral infarction without residual deficits
CPT/HCPCS: 36415; 70450; 71045; 74176; 76705; 80048; 80053; 80307; 80320; 81001; 82270; 82378; 82565; 83540; 83550; 83735; 84484; 85014; 85018; 85025; 85048; 85610; 85730; 86850; 86900; 86901; 86920; 87040; 87086; 87088; 87186; 96365; G0378; J1335; J1756; J2470; J2543; J3490